=== PATIENT | female | born 1945 | race Caucasian/White ===

== ENCOUNTER 2016-06-26 09:18 | Emergency (ER) | payer MEDICARE ==
[2016-06-26 10:12] LABS: Hematocrit 37 % (35-47); Hemoglobin 12.2 g/dl (12.0-16.0); Mean Corpuscular HGB Conc 33 g/dl (31-36); Mean Corpuscular Hemoglobin 33 pg (27-31); Mean Corpuscular Volume 99 fL (80-97); Mean Platelet Volume 10 um3 (7.4-10.4); Red Blood Count 3.71 10^6/ul (4.0-5.4); Red Cell Distribution Width 14 % (10.5-15); White Blood Count 6.4 10^3/ul (3.5-10.8)
[2016-06-26 10:22] LABS: BUN/Creatinine Ratio 14.1 (8-20); Calcium 9.4 mg/dL (8.6-10.3); EGFR African American 93.9 (>60); Globulin 2.8 g/dL (2-4); Potassium 4.1 mmol/L (3.5-5.0); Total Bilirubin 0.8 mg/dL (0.2-1.0); Total Protein 6.8 g/dL (6.4-8.9)
[2016-06-26 10:24] LABS: Troponin I 0.01 ng/mL (<0.04)
--- NOTE | 2016-06-26 10:59 | RAD ---
Indication: Chest pain. Single frontal view of the chest performed at 1035 hours was reviewed. Comparison is made with previous exam dated January 08, 2015. Cardiomegaly. Bibasilar atelectasis with blunting of the costophrenic angle is noted. No definite pneumonia is identified. IMPRESSION: CARDIOMEGALY WITH BLUNTING OF THE COSTOPHRENIC ANGLES. NO PNEUMONIA IS IDENTIFIED.
[2016-06-26 13:16] VITALS: BP 142/83
--- NOTE | 2016-06-26 13:53 | ED ---
Nita Handy Matthew, scribed for Blane Vazquez MD on 06/26/16 at 1028 . HPI Chest Pain - HPI Summary HPI Summary: A 70 y/o female presents to the ED with sudden, constant chest pain since 07:15 this morning. The pain was described as pressure. Associated symptoms include SOB, nausea, and diarrhea. The patient denies vomiting, abdominal pain, and pedal edema. Currently the chest pressure has partially resolved. The patient attempt to use her inhaler for SOB, which did not alleviate her symptoms. She had to use her inhaler at 05:00 this morning, which was unusually for her. She also took a 6 year old nitro [employer], which mildly relieved the chest pressure. She also had aspirin and a breathing treatment in the ambulance, which also helped alleviate the symptoms. The patient normally takes a baby aspirin daily. The patient states that the symptoms were similar to when she had her previous LA. - History of Current Complaint Chief Complaint: EDChestPainROMI Time Seen by Provider: 06/26/16 09:53 Hx Obtained From: Patient Onset/Duration: Started Hours Ago, Atraumatic, Still Present Time of Onset: 07:15 Timing: Constant Initial Severity: Moderate Current Severity: Moderate Pain Intensity: 0 Pain Scale Used: 0-10 Numeric Chest Pain Radiates: No Character: Pressure/Squeezing Alleviating Factor(s): NTG 123, Other: - Aspirin Associated Signs and Symptoms: Positive: Chest Pain, Shortness of Breath, Nausea , Other: - Diarrhea. Negative: Abdominal Pain, Calf Pain/Swelling, Vomiting - Allergy/Home Medications Allergies/Adverse Reactions: Allergies Allergy/AdvReac Type Severity Reaction Status Date / Time No Known Allergies Allergy Verified 01/08/15 18:13 PMH/Surg Hx/FS Hx/Imm Hx Endocrine/Hematology History: Denies: Hx Diabetes Cardiovascular History: Reports: Hx Angina, Hx Congestive Heart Failure, Hx Coronary Artery Disease, Hx Myocardial Infarction Denies: Hx Hypercholesterolemia, Hx Valvular Heart Disease Respiratory History: Reports: Hx Chronic Obstructive Pulmonary Disease (COPD), Other Respiratory Problems/Disorders - copd Denies: Hx Asthma - Surgical History Surgery Procedure, Year, and Place: HYSTERECTOMY, 01/30/12 Hx Anesthesia Reactions: No Infectious Disease History: No Infectious Disease History: Denies: Hx Hepatitis, Traveled Outside the [place] in Last 30 Days - Family History Known Family History: Positive: Cardiac Disease - Social History Alcohol Use: Daily Alcohol Amount: 2 cocktails every night Substance Use Type: Reports: None Smoking Status (MU): Former Smoker Review of Systems Constitutional: Negative Eyes: Negative ENT: Negative Positive: Chest Pain Positive: Shortness Of Breath Positive: Diarrhea, Nausea Genitourinary: Negative Musculoskeletal: Negative Skin: Negative Neurological: Negative Psychological: Normal All Other Systems Reviewed And Are Negative: Yes Physical Exam Triage Information Reviewed: Yes Vital Signs On Initial Exam: Initial Vitals Temp Pulse Resp BP Pulse Ox 98.3 F 82 18 155/85 93 06/26/16 09:26 06/26/16 09:26 06/26/16 09:26 06/26/16 09:26 06/26/16 09:26 Vital Signs Reviewed: Yes Appearance: Positive: Well-Appearing, No Pain Distress Skin: Positive: Warm, Skin Color Reflects Adequate Perfusion, Dry Head/Face: Positive: Normal Head/Face Inspection Eyes: Positive: Normal ENT: Positive: Normal ENT inspection Neck: Positive: Supple, Nontender Respiratory/Lung Sounds: Positive: Clear to Auscultation, Breath Sounds Present Cardiovascular: Positive: RRR Abdomen Description: Positive: Nontender, Soft Bowel Sounds: Positive: Present Musculoskeletal: Positive: Normal, Strength/ROM Intact Neurological: Positive: Normal, Sensory/Motor Intact, Alert, Oriented to Person Place, Time Psychiatric: Positive: Normal, Affect/Mood Appropriate Diagnostics - Vital Signs Vital Signs Temp Pulse Resp BP Pulse Ox 06/26/16 09:26 98.3 F 82 18 155/85 93 - Laboratory Lab Results: Lab Results 06/26/16 06/26/16 06/26/16 Range/Units 09:24 09:24 09:24 WBC 6.4 (3.5-10.8) 10^3/ul RBC 3.71 L (4.0-5.4) 10^6/ul Hgb 12.2 (12.0-16.0) g/dl Hct 37 (35-47) % MCV 99 H (80-97) fL MCH 33 H (27-31) pg MCHC 33 (31-36) g/dl RDW 14 (10.5-15) % Plt Count 156 (150-450) 10^3/ul MPV 10 (7.4-10.4) um3 Neut % (Auto) 80.0 (38-83) % Lymph % (Auto) 10.9 L (25-47) % [place] % (Auto) 5.5 (1-9) % Eos % (Auto) 3.1 (0-6) % Baso % (Auto) 0.5 (0-2) % Absolute Neuts (auto) 5.1 (1.5-7.7) 10^3/ul Absolute Lymphs (auto) 0.7 L (1.0-4.8) 10^3/ul Absolute Monos (auto) 0.4 (0-0.8) 10^3/ul Absolute Eos (auto) 0.2 (0-0.6) 10^3/ul Absolute Basos (auto) 0 (0-0.2) 10^3/ul Absolute Nucleated RBC 0 10^3/ul Nucleated RBC % 0 Sodium 139 (133-145) mmol/L Potassium 4.1 (3.5-5.0) mmol/L Chloride 103 (101-111) mmol/L Carbon Dioxide 28 (22-32) mmol/L Anion Gap 8 (2-11) mmol/L BUN 11 (6-24) mg/dL Creatinine 0.78 (0.51-0.95) mg/dL Est GFR ( Amer) 93.9 (>60) Est GFR (Non-Af Amer) 73.0 (>60) BUN/Creatinine Ratio 14.1 (8-20) Glucose 128 H (70-100) mg/dL Lactic Acid 1.7 (0.5-2.0) mmol/L Calcium 9.4 (8.6-10.3) mg/dL Total Bilirubin 0.80 (0.2-1.0) mg/dL AST 25 (13-39) U/L ALT 26 (7-52) U/L Alkaline Phosphatase 66 (34-104) U/L Troponin I 0.01 (<0.04) ng/mL Total Protein 6.8 (6.4-8.9) g/dL Albumin 4.0 (3.2-5.2) g/dL Globulin 2.8 (2-4) g/dL Albumin/Globulin Ratio 1.4 (1-3) 06/26/16 Range/Units 12:00 WBC (3.5-10.8) 10^3/ul RBC (4.0-5.4) 10^6/ul Hgb (12.0-16.0) g/dl Hct (35-47) % MCV (80-97) fL MCH (27-31) pg MCHC (31-36) g/dl RDW (10.5-15) % Plt Count (150-450) 10^3/ul MPV (7.4-10.4) um3 Neut % (Auto) (38-83) % Lymph % (Auto) (25-47) % [place] % (Auto) (1-9) % Eos % (Auto) (0-6) % Baso % (Auto) (0-2) % Absolute Neuts (auto) (1.5-7.7) 10^3/ul Absolute Lymphs (auto) (1.0-4.8) 10^3/ul Absolute Monos (auto) (0-0.8) 10^3/ul Absolute Eos (auto) (0-0.6) 10^3/ul Absolute Basos (auto) (0-0.2) 10^3/ul Absolute Nucleated RBC 10^3/ul Nucleated RBC % Sodium (133-145) mmol/L Potassium (3.5-5.0) mmol/L Chloride (101-111) mmol/L Carbon Dioxide (22-32) mmol/L Anion Gap (2-11) mmol/L BUN (6-24) mg/dL Creatinine (0.51-0.95) mg/dL Est GFR ( Amer) (>60) Est GFR (Non-Af Amer) (>60) BUN/Creatinine Ratio (8-20) Glucose (70-100) mg/dL Lactic Acid (0.5-2.0) mmol/L Calcium (8.6-10.3) mg/dL Total Bilirubin (0.2-1.0) mg/dL AST (13-39) U/L ALT (7-52) U/L Alkaline Phosphatase (34-104) U/L Troponin I 0.01 (<0.04) ng/mL Total Protein (6.4-8.9) g/dL Albumin (3.2-5.2) g/dL Globulin (2-4) g/dL Albumin/Globulin Ratio (1-3) Result Diagrams: 06/26/16 09:24 02/07/17 09:24 Lab Statement: Any lab studies that have been ordered have been reviewed, and results considered in the medical decision making process. - Radiology CXR Xray Interpretation: Positive (See Comments) - IMPRESSION: CARDIOMEGALY WITH BLUNTING OF THE COSTOPHRENIC ANGLES. NO PNEUMONIA IS IDENTIFIED. Radiology Interpretation Completed By: Radiologist - EKG 09:11 Cardiac Rate: NL - 85 bpm EKG Rhythm: Sinus Rhythm ST Segment: Non-Specific - inferior Chest Pain Course/Dx - Course Course Of Treatment: Vanessa Hanks presented with an almost resolved episode of SOB and chest tightness/pressure. It improved a lot when she borrowed a nebulizer. She got further resolution with a NTG in the EMS. It resolved completely with no further treatment and she was W/U'd here with labs - including two troponins - ecg and CXR. Her EDACS score was a 12. - Diagnoses Provider Diagnoses: Chest pain, COPD (chronic obstructive pulmonary disease) Discharge - Discharge Plan Condition: Stable Disposition: HOME Prescriptions: Albuterol 2.5MG/3ML (0.083%)* [Ventolin 2.5 MG/3 ML NEB.ANGÉLICA*] 2.5 mg INH Q4H # 30 neb.[email or web address] Patient Education Materials: Chest Pain (ED), Dyspnea (ED) Referrals: Marquis Suggs MD [Primary Care Provider] - 2 Days Additional Instructions: Please follow-up with your primary care physician in 2 days. The documentation as recorded by the Nita alonso Matthew accurately reflects the service I personally performed and the decisions made by me, Blane Vazquez MD.
== END 2016-06-26 13:14 | disposition home or self-care (01) ==
LOC: ED 09:18
DX: R07.9 Chest pain, unspecified (principal); J44.9 Chronic obstructive pulmonary disease, unspecified; I20.9 Angina pectoris, unspecified; I50.9 Heart failure, unspecified; I25.10 Atherosclerotic heart disease of native coronary artery without angina pectoris; I51.7 Cardiomegaly; I25.2 Old myocardial infarction; Z79.82 Long term (current) use of aspirin
CPT/HCPCS: 36415; 71010; 80053; 83605; 84484; 85025; 93005; 99284

== ENCOUNTER 2017-02-17 01:11 | Observation (INO) | payer MEDICARE ==
[2017-02-17] MEDS ORDERED: Aspirin Low Dose CHEW TAB* 81 MG PO ONE (01:21)
[2017-02-17] MEDS ORDERED: Ondansetron INJ* 2 MG/ML VIAL IV ONE (01:21)
[2017-02-17] MEDS ORDERED: NS 0.9% 1000 ML* 1,000 ML IV ONE (01:21)
[2017-02-17 02:18] LABS: Hematocrit 38 % (35-47); Hemoglobin 12.5 g/dl (12.0-16.0); Mean Corpuscular HGB Conc 33 g/dl (31-36); Mean Corpuscular Hemoglobin 32 pg (27-31); Mean Corpuscular Volume 99 fL (80-97); Mean Platelet Volume 10 um3 (7.4-10.4); Red Blood Count 3.86 10^6/ul (4.0-5.4); Red Cell Distribution Width 13 % (10.5-15); White Blood Count 16.1 10^3/ul (3.5-10.8)
[2017-02-17 02:19] LABS: Add Diff/Slide Review? Slide Review Added; Comments Flag Yes
[2017-02-17] MEDS ORDERED: Diltiazem IV* 5 MG/ML 5 ML VIAL (for loading dose/IV Push) (25 MG) IV SLOW PU ONE (02:28)
[2017-02-17 02:31] LABS: Albumin 3.4 g/dL (3.2-5.2); BUN/Creatinine Ratio 11.6 (8-20); Calcium 8.6 mg/dL (8.6-10.3); EGFR African American 33.5 (>60); EGFR Non-African American 26.1 (>60); Globulin 3.2 g/dL (2-4); Magnesium 1.2 mg/dL (1.9-2.7); Potassium 3.4 mmol/L (3.5-5.0); Total Bilirubin 0.8 mg/dL (0.2-1.0); Total Protein 6.6 g/dL (6.4-8.9)
[2017-02-17 02:38] LABS: Troponin I 0.05 ng/mL (<0.04)
[2017-02-17 02:46] LABS: TSH (Thyroid Stimulating Horm) 8.51 mcIU/mL (0.34-5.60)
[2017-02-17] MEDS ORDERED: Acetaminophen TAB* 325 MG PO PRN (04:08)
[2017-02-17] MEDS ORDERED: Albuterol 2.5 MG/3 ML NEB.SOL* (0.083%) INH PRN (04:08)
[2017-02-17] MEDS ORDERED: Ondansetron INJ* 2 MG/ML VIAL IV PRN (04:08)
[2017-02-17] MEDS: Omeprazole CAP* 20 MG PO SCH (05:45)
[2017-02-17] MEDS: Heparin VIAL(*) 5000 UNITS/ML VIAL (FIVE THOUSAND) SUBCUT SCH ×3 (05:45→21:05)
[2017-02-17] MEDS: NS 0.9% 1000 ML* 1,000 ML IV SCH ×2 (05:48→12:10)
[2017-02-17] MEDS ORDERED: Potassium Chlor TAB* 20 MEQ TAB.ER PO ONE (07:12)
[2017-02-17 07:24] LABS: Hematocrit 35 % (35-47); Hemoglobin 11.6 g/dl (12.0-16.0); Mean Corpuscular HGB Conc 34 g/dl (31-36); Mean Corpuscular Hemoglobin 33 pg (27-31); Mean Corpuscular Volume 98 fL (80-97); Mean Platelet Volume 9 um3 (7.4-10.4); Red Blood Count 3.54 10^6/ul (4.0-5.4); Red Cell Distribution Width 14 % (10.5-15); White Blood Count 20.7 10^3/ul (3.5-10.8)
[2017-02-17] MEDS ORDERED: NS 0.9% 500 ML BAG* 500 ML IV ONE (07:41)
[2017-02-17 07:42] LABS: BUN/Creatinine Ratio 16.9 (8-20); Calcium 7.8 mg/dL (8.6-10.3); EGFR African American 46.9 (>60); EGFR Non-African American 36.5 (>60); Potassium 3.9 mmol/L (3.5-5.0)
[2017-02-17] MEDS ORDERED: Potassium Chloride LIQUID* 20 MEQ PACKET PO ONE (07:42)
[2017-02-17] MEDS ORDERED: Magnesium Sulfate 2 GM IV* 2 GM/50 ML BAG IVPB ONE (07:42)
--- NOTE | 2017-02-17 07:47 | HP ---
H&P (Free Text) History and Physical: PCP: Giovanny Suggs MD Cardiology: Dr Reid Date/Time: 02/17/2017 3057 CC: malaise HPI: Mrs Hanks is a 71YO female HX CAD, COPD, pAFIB who presents via EMS with complaint of malaise starting this AM associated with subjective F/C, sweats, loose/watery diarrhea w/o black or bloody content, fatigue, generalized weakness, and nausea with dry heaves x3-4. She denies chest pain, SOB, B/U/F of urine, abdominal pain beyond cramping associated with emesis, palpitations, LE swelling, cough, congestion, or other issues. Work up revealed AFIB RVR rate 140s treated with IVFs and 10mg diltiazem IV push in ED resulting in conversion to NSR with persistent hypotension likely 2nd BP effect of diltiazem. Upon my evaluation she was feeling notably better with a systolic in the 80s, but mentating normally. Additionally her troponin is indeterminate at 0.05 and her lactate was 3.9 likely 2nd demand ischemia from her tachycardia and poor cardiac output, respectively. K was low at 3.4. WBCs are 16, likely 2nd demarginalization. BNP was elevated, but consistent with the only previous value available. PMedHx CAD/ME/stent x2 COPD HTN HLD Ambulatory Orders Alendronate (NF) [Fosamax (NF)] 35 mg PO WEEKLY 05/16/12 Aspirin Low Dose CHEW TAB* [Aspirin Low Dose TAB*] 81 mg PO DAILY 05/16/12 Calcium Carbonate-Vitamin D [Calcium] 2 tab PO DAILY 05/16/12 Dicyclomine CAP* [Bentyl CAP*] 40 mg PO DAILY 05/16/12 Lisinopril TAB* [Prinivil TAB*] 20 mg PO DAILY 05/16/12 Metoprolol Tartrate TAB* [Lopressor TAB*] 50 mg PO DAILY 05/16/12 Multivitamins/Minerals TAB* [Thera M Plus*] 1 tab PO DAILY 05/16/12 Nitroglycerin TAB 0.4 MG* [Nitrostat*] 0.4 mg SL PRN 05/16/12 Sertraline* [Zoloft*] 25 mg PO DAILY 05/16/12 Simvastatin TAB(NF) [Zocor(NF)] 40 mg PO DAILY 05/16/12 Albuterol 2.5MG/3ML (0.083%)* [Ventolin 2.5 MG/3 ML NEB.ANGÉLICA*] 2.5 mg INH Q4H # 30 neb.angélica 06/26/16 Allergies No Known Allergies Allergy (Verified 02/17/17 05:20) PSurgHx hysterectomy complicated by wound infection, abdominal abscess, & sepsis 2011 ventral hernia repair appendectomy tubal ligation SocHx: quit smoking 2000, 2 cocktails nightly, no recreational drugs; , lives alone; full code status FamHx: positive for CAD, breast CA ROS: as above, otherwise reviewed and all were negative vitals: Vital Signs Temp 36.4 C 02/17/17 05:31 Pulse 88 02/17/17 05:31 Resp 18 02/17/17 05:31 BP 95/54 02/17/17 05:31 Pulse Ox 96 02/17/17 05:31 Intake & Output 02/16/17 02/16/17 02/17/17 11:59 23:59 11:59 Intake Total 1000 Balance 1000 Weight 78.29 kg Intake: IV Fluids 1000 Constitutional: NAD, normally developed, overweight elderly white female HEENM: atraumatic; sclera/conjunctiva: anicteric/clear; hearing: clinically intact; oropharynx: clear, mucosa moist Neck: soft tissue: non-tender; thyroid: normal Pulmonary: scant bibasilar crackles, good aeration, no accessory muscle use CV: RR/RR, normal S1S2, no carotid bruit, no jugular venous distention, 2+ B DP/ PT, no edema Abdominal: soft, non-distended, non-tender, no rebound/guarding/rigidity, normoactive bowel sounds, no hepatosplenomegaly or masses, no costovertebral angle tenderness Musculoskeletal: general: grossly intact, no palpable tenderness Integumental: normal appearance and texture of exposed skin Psychiatric orientation: AA&O to PPS affect: calm mood: cooperative eye contact: good content: reliable responses: timely insight: good Testing: Lab Results 02/17/17 02/17/17 02/17/17 Range/Units 01:55 01:55 01:55 WBC 16.1 H (3.5-10.8) 10^3/ul RBC 3.86 L (4.0-5.4) 10^6/ul Hgb 12.5 (12.0-16.0) g/dl Hct 38 (35-47) % MCV 99 H (80-97) fL MCH 32 H (27-31) pg MCHC 33 (31-36) g/dl RDW 13 (10.5-15) % Plt Count 185 (150-450) 10^3/ul MPV 10 (7.4-10.4) um3 Neut % (Auto) 94.9 H (38-83) % Lymph % (Auto) 2.7 L (25-47) % [place] % (Auto) 2.1 (1-9) % Eos % (Auto) 0.2 (0-6) % Baso % (Auto) 0.1 (0-2) % Absolute Neuts (auto) 15.3 H (1.5-7.7) 10^3/ul Absolute Lymphs (auto) 0.4 L (1.0-4.8) 10^3/ul Absolute Monos (auto) 0.3 (0-0.8) 10^3/ul Absolute Eos (auto) 0 (0-0.6) 10^3/ul Absolute Basos (auto) 0 (0-0.2) 10^3/ul Absolute Nucleated RBC 0 10^3/ul Nucleated RBC % 0 INR (Anticoag Therapy) 1.17 H (0.89-1.11) APTT 29.5 (26.0-36.3) seconds Sodium (133-145) mmol/L Potassium (3.5-5.0) mmol/L Chloride (101-111) mmol/L Carbon Dioxide (22-32) mmol/L Anion Gap (2-11) mmol/L BUN (6-24) mg/dL Creatinine (0.51-0.95) mg/dL Est GFR ( Amer) (>60) Est GFR (Non-Af Amer) (>60) BUN/Creatinine Ratio (8-20) Glucose (70-100) mg/dL Lactic Acid (0.5-2.0) mmol/L Calcium (8.6-10.3) mg/dL Magnesium (1.9-2.7) mg/dL Total Bilirubin (0.2-1.0) mg/dL AST (13-39) U/L ALT (7-52) U/L Alkaline Phosphatase (34-104) U/L Total Creatine Kinase (10-223) U/L CK-MB (CK-2) (0.6-6.3) ng/mL Troponin I (<0.04) ng/mL B-Natriuretic Peptide 535 H ( - 100) pg/mL Total Protein (6.4-8.9) g/dL Albumin (3.2-5.2) g/dL Globulin (2-4) g/dL Albumin/Globulin Ratio (1-3) Amylase (29-103) U/L Lipase (11.0-82.0) U/L TSH (0.34-5.60) mcIU/mL 02/17/17 02/17/17 02/17/17 Range/Units 01:55 01:55 07:02 WBC 20.7 H (3.5-10.8) 10^3/ul RBC 3.54 L (4.0-5.4) 10^6/ul Hgb 11.6 L (12.0-16.0) g/dl Hct 35 (35-47) % MCV 98 H (80-97) fL MCH 33 H (27-31) pg MCHC 34 (31-36) g/dl RDW 14 (10.5-15) % Plt Count 170 (150-450) 10^3/ul MPV 9 (7.4-10.4) um3 Neut % (Auto) 93.5 H (38-83) % Lymph % (Auto) 1.8 L (25-47) % [place] % (Auto) 3.7 (1-9) % Eos % (Auto) 0.1 (0-6) % Baso % (Auto) 0.9 (0-2) % Absolute Neuts (auto) 19.4 H (1.5-7.7) 10^3/ul Absolute Lymphs (auto) 0.4 L (1.0-4.8) 10^3/ul Absolute Monos (auto) 0.8 (0-0.8) 10^3/ul Absolute Eos (auto) 0 (0-0.6) 10^3/ul Absolute Basos (auto) 0.2 (0-0.2) 10^3/ul Absolute Nucleated RBC 0 10^3/ul Nucleated RBC % 0 INR (Anticoag Therapy) (0.89-1.11) APTT (26.0-36.3) seconds Sodium 134 (133-145) mmol/L Potassium 3.4 L (3.5-5.0) mmol/L Chloride 97 L (101-111) mmol/L Carbon Dioxide 22 (22-32) mmol/L Anion Gap 15 H (2-11) mmol/L BUN 22 (6-24) mg/dL Creatinine 1.90 H (0.51-0.95) mg/dL Est GFR ( Amer) 33.5 (>60) Est GFR (Non-Af Amer) 26.1 (>60) BUN/Creatinine Ratio 11.6 (8-20) Glucose 129 H (70-100) mg/dL Lactic Acid 3.9 H* (0.5-2.0) mmol/L Calcium 8.6 (8.6-10.3) mg/dL Magnesium 1.2 L (1.9-2.7) mg/dL Total Bilirubin 0.80 (0.2-1.0) mg/dL AST 24 (13-39) U/L ALT 21 (7-52) U/L Alkaline Phosphatase 85 (34-104) U/L Total Creatine Kinase 42 (10-223) U/L CK-MB (CK-2) 1.8 (0.6-6.3) ng/mL Troponin I 0.05 H* (<0.04) ng/mL B-Natriuretic Peptide ( - 100) pg/mL Total Protein 6.6 (6.4-8.9) g/dL Albumin 3.4 (3.2-5.2) g/dL Globulin 3.2 (2-4) g/dL Albumin/Globulin Ratio 1.1 (1-3) Amylase 56 (29-103) U/L Lipase 49 (11.0-82.0) U/L TSH 8.51 H (0.34-5.60) mcIU/mL ECG, personally reviewed: initially AFIB rate [address]-T changes; follow up is NSR rate 82, no ischemia CXR, personally reviewed: no acute process Impression: 71F presenting with multiple symptoms found to be in AFIB/RVR with indeterminate troponin, elevated BNP, elevated lactic acid DIAGNOSIS & PLAN Primary AFIB/RVR : converted to NSR : persistent hypotension likely 2nd BP effect of diltiazem : elevated troponin, lactic acid; trend : telemetry : supplemental oxygen : supportive care : [id number] score is 4, but 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 OLAMIDE : suspect 2nd poor cardiac output : will hold further IVF at this time as she has bibasilar crackles and was at a golf tournament last week admitting to some sodium indiscretion : trend elevated BNP : likely 2nd poor cardiac output 2nd AFIB/RVR : monitor respiratory status elevated TSH : f/u with PCP outpatient for further evaluation hypoKalemia : replace Secondary CAD/ME/stent x2 : review meds once reconciled COPD : review meds once reconciled HTN : review meds once reconciled HLD : review meds once reconciled Admission Rational: observation for AFIB/RVR DVTp: heparin SQ Code Status: full HCP: daughter, Yashira Pierre
[2017-02-17 07:53] LABS: Troponin I 0.08 ng/mL (<0.04)
[2017-02-17] MEDS: Atorvastatin* 20 MG TAB PO SCH (08:01)
[2017-02-17] MEDS: Aspirin Low Dose CHEW TAB* 81 MG PO SCH (08:01)
[2017-02-17] MEDS: Sertraline* 25 MG TAB PO SCH (08:01)
--- NOTE | 2017-02-17 08:01 | RAD ---
HISTORY: Rapid A. fib COMPARISONS: June 26, 2016 VIEWS: 1: frontal portable view of the chest at 2:14 AM FINDINGS: LINES AND TUBES: None. CARDIOMEDIASTINAL SILHOUETTE: The cardiac silhouette is enlarged. The cardiomediastinal silhouette is otherwise normal for portable technique. PLEURA: The costophrenic angles are sharp. No pleural abnormalities are noted. LUNG PARENCHYMA: The lungs are clear. ABDOMEN: The upper abdomen is clear. There is no subphrenic gas. BONES AND SOFT TISSUES: No bone or soft tissue abnormalities are noted. IMPRESSION: CARDIOMEGALY
[2017-02-17] MEDS: IPRATROPIUM RESP MDI INH SCH ×4 (08:11→23:58)
[2017-02-17] MEDS: ALBUTEROL INH SCH ×4 (08:11→23:58)
[2017-02-17] MEDS: Docusate CAP* 100 MG PO SCH ×2 (08:11→20:52)
[2017-02-17 08:22] LABS: Urine Bacteria 3+ (Absent); Urine Bilirubin Negative (Negative); Urine Glucose Negative (Negative); Urine Nitrite Negative (Negative)
[2017-02-17] MEDS ORDERED: Magnesium Sulfate 1 GM IV* 1 GM/100 ML BAG IV ONE (10:15)
--- NOTE | 2017-02-17 10:36 | PN ---
Subjective Date of Service: 02/17/17 Interval History: Patient seen this morning. Reports feeling improved. No further chills, more energy. Still with some slight dizziness when sitting up. Continues to have watery BMs. SOB resolved, states she has had to be discharged from the hospital on O2 in the past. 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 Had nothing to eat yesterday, does not feel she was taking in significant fluids either. Family History: Unchanged from Admission Social History: Unchanged from Admission Past Medical History: Unchanged from Admission Objective Active Medications: Acetaminophen (Tylenol Tab*) 650 mg PO Q6H PRN Albuterol (Ventolin 2.5 Mg/3 Ml Neb.Gayle*) 2.5 mg INH Q2H PRN Albuterol/Ipratropium (Combivent Respimat(Nf)) 1 puff INH QID [facility] Aspirin (Aspirin Low Dose Tab*) 81 mg PO DAILY [facility] Atorvastatin Calcium (Lipitor*) 20 mg PO DAILY [facility] Docusate Sodium (Colace Cap*) 200 mg PO BID [facility] Heparin Sodium (Porcine) (Heparin Vial(*)) 5,000 units SUBCUT Q8HR [facility] Sodium Chloride (Ns 0.9% 1000 Ml*) 1,000 mls @ 50 mls/hr IV PER RATE [facility] Magnesium Sulfate/Dextrose (Magnesium Sulfate 1 Gm Iv*) 1 gm in 100 mls @ 200 mls/hr IV ONCE ONE Omeprazole (Prilosec Cap*) 20 mg PO DAILY@0600 [facility] Ondansetron HCl (Zofran Inj*) 4 mg IV Q6H PRN Sertraline HCl (Zoloft*) 25 mg PO DAILY [facility] Vital Signs 02/17/17 02/17/17 02/17/17 04:15 05:31 07:06 Temperature 97.6 F Pulse Rate 84 88 Respiratory 18 18 20 Rate Blood Pressure 84/54 95/54 (mmHg) O2 Sat by Pulse 96 96 Oximetry 02/17/17 02/17/17 02/17/17 07:23 07:27 08:50 Temperature 98.0 F Pulse Rate 85 89 Respiratory 20 Rate Blood Pressure 85/37 100/49 (mmHg) O2 Sat by Pulse 91 96 Oximetry 02/17/17 09:15 Temperature Pulse Rate Respiratory Rate Blood Pressure 88/46 (mmHg) O2 Sat by Pulse Oximetry Oxygen Devices in Use Now: Nasal Cannula - 2L Appearance: Elderly, F, laying in bed in NAD Eyes: No Scleral Icterus Ears/Nose/Mouth/Throat: Mucous Membranes Moist Neck: NL Appearance and Movements; NL JVP Respiratory: Symmetrical Chest Expansion and Respiratory Effort, - - Trace rales in B/L bases Cardiovascular: NL Sounds; No Murmurs; No JVD, RRR Abdominal: NL Sounds; No Tenderness; No Distention Lymphatic: No Cervical Adenopathy Extremities: No Edema Skin: No Rash or Ulcers Neurological: Alert and Oriented x 3 Result Diagrams: 02/17/17 07:02 02/17/17 07:02 Assess/Plan/Problems-Billing Assessment: Diarrhea, nausea, AFib with RVR, OLAMIDE, possible UTI in a 71 yo F with hx of pAF not on AC, COPD, HTN, HLD, CAD, CHF - Patient Problems (1) Afib Current Visit: Yes Comment: Received IV Diltiazem in the ED and converted to NSR. Holding home Metoprolol. Not on AC as outpatient, can f/u with Cardiolgist. Replete K and Mg. (2) Troponin I above reference range Current Visit: Yes Comment: Likely due to demand from AFib/hypovolemia. No EKG changes or chest pain. Recheck in AM. (3) OLAMIDE (acute kidney injury) Current Visit: Yes Comment: Likely due to hypoperfusion/dehydration. Improving with IVF, gave additional 500 cc bolus this morning. Encourage PO intake. BMP daily. (4) Hypotension Current Visit: Yes Comment: Likely due to dehydration and diltiazem effects. BPs low still but stable, hold on more boluses. Lactic acidosis resolved. Hold home BP medications. (5) UTI (urinary tract infection) Current Visit: Yes Comment: Patient reporting some crampy pain in the lower abdomen, but with leukocytosis and positive UA will opt to treat with CTX. Follow culture data. (6) Diarrhea Current Visit: Yes Comment: Reports 5-6 episodes since last night. Will check C diff and fecal lactoferrin. May just be viral gastroenteritis (7) CAD (coronary artery disease) Current Visit: Yes Comment: Continue ASA. Holding metoprolol as above. (8) COPD (chronic obstructive pulmonary disease) Current Visit: Yes Comment: Continue home combivent. Wean O2 as able. (9) HLD (hyperlipidemia) Current Visit: Yes Comment: Continue statin (10) DVT prophylaxis Current Visit: Yes Comment: HSQ
--- NOTE | 2017-02-17 10:37 | ED ---
Velvet Handy Thomas, scribed for Candy Price MD on 02/17/17 at 0208 . HPI Cardiac - HPI Summary HPI Summary: The pt is a 71 y/o F BIBA with rapid A-Fib and hypotensive blood pressure. She had generalized illness earlier today with abdominal cramping, dry heaves, and diarrhea onset two hours ago. Pt denies CP and SOB. No melena, hematochezia, no hematemesisThe patient is on furosemide 20mg, levothyroxine 25mg, simvastatin 40mg, NTG PRN, Qvar, Flovent, ASA 81mg, Metoprolol ER 50mg, and Sertraline 50mg. PMHx of an [place], CHF, and A-Fib. PSHx of coronary stents, hysterectomy, and hernia repair. FHx of CAD. She is accompanied by two family members. - History of Current Complaint Chief Complaint: EDGeneral Stated Complaint: GENERAL ILLNESS Time Seen by Provider: 02/17/17 01:21 Hx Obtained From: Patient, Family/[place] - 2 female family members with pt, EMS Onset/Duration: Started Minutes Ago - rapid A-Fib was first noticed en route to [facility], Still Present Timing: Constant Initial Severity: Severe Current Severity: Severe - rapid afib without chest pain Pain Intensity: 0 Pain Scale Used: 0-10 Numeric Aggravating Factor(s): Nothing Alleviating Factor(s): Nothing Associated Signs and Symptoms: Positive: Weakness, Abdominal Pain, Other: - Abdominal cramping, dry heaves, diarrhea - Allergy/Home Medications Allergies/Adverse Reactions: Allergies Allergy/AdvReac Type Severity Reaction Status Date / Time No Known Allergies Allergy Verified 02/17/17 05:20 Home Medications: Home Medications Albuterol 2.5MG/3ML (0.083%)* [Ventolin 2.5 MG/3 ML NEB.ANGÉLICA*] 2.5 mg INH Q4H PRN 02/17/17 [History Confirmed 02/17/17] Combivent Respimat (NF) 1 puff INH QID 02/17/17 [History Confirmed 02/17/17] Naproxen Sodium 220 mg 1 tab PO Q6HR PRN 02/17/17 [History Confirmed 02/17/17] PMH/Surg Hx/FS Hx/Imm Hx Previously Healthy: No Endocrine/Hematology History: Denies: Hx Diabetes Cardiovascular History: Reports: Hx Angina, Hx Congestive Heart Failure, Hx Coronary Artery Disease, Hx Myocardial Infarction Denies: Hx Hypercholesterolemia, Hx Valvular Heart Disease Respiratory History: Reports: Hx Chronic Obstructive Pulmonary Disease (COPD) Denies: Hx Asthma - Surgical History Surgery Procedure, Year, and Place: HYSTERECTOMY, 01/30/12. coronary stents, hernia repair Hx Anesthesia Reactions: No Infectious Disease History: No Infectious Disease History: Denies: Hx Hepatitis, Traveled Outside the [place] in Last 30 Days - Family History Known Family History: Positive: Cardiac Disease - Social History Alcohol Use: Daily Alcohol Amount: 2 cocktails every night Substance Use Type: Reports: None Smoking Status (MU): Former Smoker Review of Systems Constitutional: Negative Positive: Other - Rapid A-Fib; Hypotensive. Negative: Chest Pain Negative: Shortness Of Breath Positive: Diarrhea, Other - Abdominal pain, dry heaves Positive: no symptoms reported Musculoskeletal: Negative Skin: Negative Positive: Weakness - generalized Psychological: Normal All Other Systems Reviewed And Are Negative: Yes Physical Exam Triage Information Reviewed: Yes Vital Signs On Initial Exam: Initial Vitals Temp Pulse Resp BP Pulse Ox 96.4 F 145 18 95/62 96 02/17/17 01:16 02/17/17 01:16 02/17/17 01:16 02/17/17 01:16 02/17/17 01:16 Vital Signs Reviewed: Yes Appearance: Positive: No Pain Distress, Well-Nourished, Ill-Appearing Skin: Positive: Warm, Skin Color Reflects Adequate Perfusion Head/Face: Positive: Normal Head/Face Inspection Eyes: Positive: Conjunctiva Clear ENT: Positive: Normal ENT inspection Neck: Positive: Supple Respiratory/Lung Sounds: Positive: Clear to Auscultation, Breath Sounds Present , Other - No respiratory distress Cardiovascular: Positive: Pulses are Symmetrical in both Upper and Lower Extremities, Tachycardia, Leg Edema Right, Other - Brisk cap refill. Negative: Murmur Abdomen Description: Positive: Nontender, No Organomegaly, Soft Bowel Sounds: Positive: Present Musculoskeletal: Positive: Strength/ROM Intact Neurological: Positive: Sensory/Motor Intact, Alert, Oriented to Person Place, Time, Facial Symmetry, Speech Normal Psychiatric: Positive: Normal - [place] Coma Scale Coma Scale Total: 15 Diagnostics - Vital Signs Vital Signs Temp Pulse Resp BP Pulse Ox 02/17/17 01:16 96.4 F 145 18 95/62 96 - Laboratory Lab Results: Lab Results 02/17/17 02/17/17 02/17/17 Range/Units 01:55 01:55 01:55 WBC 16.1 H (3.5-10.8) 10^3/ul RBC 3.86 L (4.0-5.4) 10^6/ul Hgb 12.5 (12.0-16.0) g/dl Hct 38 (35-47) % MCV 99 H (80-97) fL MCH 32 H (27-31) pg MCHC 33 (31-36) g/dl RDW 13 (10.5-15) % Plt Count 185 (150-450) 10^3/ul MPV 10 (7.4-10.4) um3 Neut % (Auto) 94.9 H (38-83) % Lymph % (Auto) 2.7 L (25-47) % [place] % (Auto) 2.1 (1-9) % Eos % (Auto) 0.2 (0-6) % Baso % (Auto) 0.1 (0-2) % Absolute Neuts (auto) 15.3 H (1.5-7.7) 10^3/ul Absolute Lymphs (auto) 0.4 L (1.0-4.8) 10^3/ul Absolute Monos (auto) 0.3 (0-0.8) 10^3/ul Absolute Eos (auto) 0 (0-0.6) 10^3/ul Absolute Basos (auto) 0 (0-0.2) 10^3/ul Absolute Nucleated RBC 0 10^3/ul Nucleated RBC % 0 INR (Anticoag Therapy) 1.17 H (0.89-1.11) APTT 29.5 (26.0-36.3) seconds Sodium (133-145) mmol/L Potassium (3.5-5.0) mmol/L Chloride (101-111) mmol/L Carbon Dioxide (22-32) mmol/L Anion Gap (2-11) mmol/L BUN (6-24) mg/dL Creatinine (0.51-0.95) mg/dL Est GFR ( Amer) (>60) Est GFR (Non-Af Amer) (>60) BUN/Creatinine Ratio (8-20) Glucose (70-100) mg/dL Lactic Acid (0.5-2.0) mmol/L Calcium (8.6-10.3) mg/dL Magnesium (1.9-2.7) mg/dL Total Bilirubin (0.2-1.0) mg/dL AST (13-39) U/L ALT (7-52) U/L Alkaline Phosphatase (34-104) U/L Total Creatine Kinase (10-223) U/L CK-MB (CK-2) (0.6-6.3) ng/mL Troponin I (<0.04) ng/mL B-Natriuretic Peptide 535 H ( - 100) pg/mL Total Protein (6.4-8.9) g/dL Albumin (3.2-5.2) g/dL Globulin (2-4) g/dL Albumin/Globulin Ratio (1-3) Amylase (29-103) U/L Lipase (11.0-82.0) U/L TSH (0.34-5.60) mcIU/mL 02/17/17 02/17/17 Range/Units 01:55 01:55 WBC (3.5-10.8) 10^3/ul RBC (4.0-5.4) 10^6/ul Hgb (12.0-16.0) g/dl Hct (35-47) % MCV (80-97) fL MCH (27-31) pg MCHC (31-36) g/dl RDW (10.5-15) % Plt Count (150-450) 10^3/ul MPV (7.4-10.4) um3 Neut % (Auto) (38-83) % Lymph % (Auto) (25-47) % [place] % (Auto) (1-9) % Eos % (Auto) (0-6) % Baso % (Auto) (0-2) % Absolute Neuts (auto) (1.5-7.7) 10^3/ul Absolute Lymphs (auto) (1.0-4.8) 10^3/ul Absolute Monos (auto) (0-0.8) 10^3/ul Absolute Eos (auto) (0-0.6) 10^3/ul Absolute Basos (auto) (0-0.2) 10^3/ul Absolute Nucleated RBC 10^3/ul Nucleated RBC % INR (Anticoag Therapy) (0.89-1.11) APTT (26.0-36.3) seconds Sodium 134 (133-145) mmol/L Potassium 3.4 L (3.5-5.0) mmol/L Chloride 97 L (101-111) mmol/L Carbon Dioxide 22 (22-32) mmol/L Anion Gap 15 H (2-11) mmol/L BUN 22 (6-24) mg/dL Creatinine 1.90 H (0.51-0.95) mg/dL Est GFR ( Amer) 33.5 (>60) Est GFR (Non-Af Amer) 26.1 (>60) BUN/Creatinine Ratio 11.6 (8-20) Glucose 129 H (70-100) mg/dL Lactic Acid 3.9 H* (0.5-2.0) mmol/L Calcium 8.6 (8.6-10.3) mg/dL Magnesium 1.2 L (1.9-2.7) mg/dL Total Bilirubin 0.80 (0.2-1.0) mg/dL AST 24 (13-39) U/L ALT 21 (7-52) U/L Alkaline Phosphatase 85 (34-104) U/L Total Creatine Kinase 42 (10-223) U/L CK-MB (CK-2) 1.8 (0.6-6.3) ng/mL Troponin I 0.05 H* (<0.04) ng/mL B-Natriuretic Peptide ( - 100) pg/mL Total Protein 6.6 (6.4-8.9) g/dL Albumin 3.4 (3.2-5.2) g/dL Globulin 3.2 (2-4) g/dL Albumin/Globulin Ratio 1.1 (1-3) Amylase 56 (29-103) U/L Lipase 49 (11.0-82.0) U/L TSH 8.51 H (0.34-5.60) mcIU/mL Result Diagrams: 02/18/17 05:37 02/18/17 05:37 Lab Statement: Any lab studies that have been ordered have been reviewed, and results considered in the medical decision making process. - Radiology CXR Xray Interpretation: No Acute Changes - No acute disease. Radiology Interpretation Completed By: ED Physician - EKG 01:15 Cardiac Rate: Tachycardia - 139 BPM EKG Rhythm: Atrial Fibrillation EKG Interpretation: Nml IV/Kermit. Prolonged QTc (507). EKG Comparison: Other - Compared to 06/26/16, the patient is now in rapid A-Fib Re-Evaluation - Re-Evaluation First Eval Re-Evaluation Time: 01:27 Change: Unchanged Comment: At re-evaluation at 01:27, the patient says she wants to be DNR. This is witnessed by two family members. She has capacity. Second Eval Re-Evaluation Time: 02:24 Change: Unchanged Comment: I re-evaluated the patient. Pt with afib and rapid RVR, hypotension despite fluid bolus. Pt is mentating, not vomiting. Will give diltiazem IV push. Third Eval Re-Evaluation Time: 03:03 Change: Unchanged Comment: Heart rate is 117 systolic and presure is 76 systolic after 10mg of diltiazem. I am contacting Dr. Alfredo. Disposition - Course Course Of Treatment: Patients medications reviewed this visit. Assessment/Plan: The pt is a 71 y/o F BIBA with rapid A-Fib and hypotensive blood pressure. She had generalized illness earlier today with abdominal cramping, dry heaves, and diarrhea onset two hours ago. Pt denies CP and SOB. At re-evaluation at 01:27, the patient says she wants to be DNR. This is witnessed by two family members. She has capacity. Patients medication reviewed this visit. Blood pressure noted. In the ED course the patient was given ASA, Diltiazem, IV fluids, and Zofran. Bloodwork was obtained with results earlier in this report. Troponin 0.05 on 1:55 and 0.08 on 07:02. EKG was obtained with results earlier in this report. CXR shows no acute disease. ED physician has reviewed this report and agrees. Patient will be admitted by Dr. Alfredo at 04:15. Patient is stable at this time. - Differential Dx - Cardiopulmonary Differential Diagnoses - Cardiopulmonary: Atrial Fibrillation, CAD, CHF, Exacerbation Of COPD, Myocardial Infarction, Pulmonary Embolism - Diagnoses Provider Diagnoses: Atrial fibrillation with rapid ventricular response, Hypotension, Diarrhea - Physician Notifications Discussed Care Of Patient With: David Alfredo Time Discussed With Above Provider: 03:04 Instructed by Provider To: Other - I consulted with Dr. Alfredo, mobile manager , regarding patient care. He will admit the patient to [facility]. - Critical Care Time Critical Care Time: 30-74 min - 30 minutes Discharge - Discharge Plan Condition: Fair Disposition: ADMITTED TO [facility] Discharge Disposition Comment: By Dr. Alfredo. The documentation as recorded by the Velvet alonso Thomas accurately reflects the service I personally performed and the decisions made by me, Candy Price MD.
[2017-02-17] MEDS: cefTRIAXone VIAL(*) 1,000 MG in NS 0.9% 50 ML* 50 ML IVPB SCH (12:09)
[2017-02-18] MEDS: Heparin VIAL(*) 5000 UNITS/ML VIAL (FIVE THOUSAND) SUBCUT SCH (05:21)
[2017-02-18] MEDS: Omeprazole CAP* 20 MG PO SCH (05:21)
[2017-02-18] MEDS: IPRATROPIUM RESP MDI INH SCH (05:34)
[2017-02-18] MEDS: ALBUTEROL INH SCH (05:34)
[2017-02-18] MEDS ORDERED: ALBUTEROL INH PRN (05:47)
[2017-02-18] MEDS ORDERED: IPRATROPIUM RESP MDI INH PRN (05:47)
[2017-02-18 06:23] LABS: Hematocrit 32 % (35-47); Hemoglobin 10.7 g/dl (12.0-16.0); Mean Corpuscular HGB Conc 34 g/dl (31-36); Mean Corpuscular Hemoglobin 34 pg (27-31); Mean Corpuscular Volume 100 fL (80-97); Mean Platelet Volume 10 um3 (7.4-10.4); Red Blood Count 3.18 10^6/ul (4.0-5.4); Red Cell Distribution Width 14 % (10.5-15); White Blood Count 14.3 10^3/ul (3.5-10.8)
[2017-02-18 06:41] LABS: BUN/Creatinine Ratio 22.8 (8-20); EGFR African American 92.3 (>60); EGFR Non-African American 71.7 (>60); Magnesium 2.7 mg/dL (1.9-2.7); Potassium 4.6 mmol/L (3.5-5.0)
[2017-02-18 06:46] LABS: Troponin I 0.06 ng/mL (<0.04)
--- NOTE | 2017-02-18 08:07 | DCNOTE ---
Patient feeling much improved this morning. Reports energy improved, diarrhea has resolved, breathing easier. Still not much appetite but has been taking fluids. On exam, RRR, s1 and s2 present, no m/g/r, abd soft, NTND, BS+, lungs with some rales in bases B/L, otherwise clear, no LE edema Remains in NSR Will ambulate patient, see if we can get off of O2. OLAMIDE resolved, demand- mediated trop elevation improving. Plan to discharge home today on a few additional days of ABx for UTI. Slowly resume anti-hypertensives as outpatient. Follow-up with PCP.
[2017-02-18 08:18] VITALS: BP 103/49
[2017-02-18] MEDS: Docusate CAP* 100 MG PO SCH (08:23)
[2017-02-18] MEDS: Atorvastatin* 20 MG TAB PO SCH (08:23)
[2017-02-18] MEDS: Sertraline* 25 MG TAB PO SCH (08:24)
[2017-02-18] MEDS: Aspirin Low Dose CHEW TAB* 81 MG PO SCH (08:24)
[2017-02-18] MEDS: cefTRIAXone VIAL(*) 1,000 MG in NS 0.9% 50 ML* 50 ML IVPB SCH (11:07)
--- NOTE | 2017-02-19 04:35 | DS ---
CC: Dr. Suggs * DISCHARGE SUMMARY: DATE OF ADMISSION: 02/17/17 DATE OF DISCHARGE: 02/18/17 PRIMARY CARE PHYSICIAN: Dr. Suggs. PRINCIPAL DISCHARGE DIAGNOSES: 1. Viral gastroenteritis. 2. Urinary tract infection. 3. Atrial fibrillation. 4. Lactic acidosis. 5. Mild troponin elevation. STUDIES DONE DURING HOSPITALIZATION: Chest x-ray, impression; cardiomegaly. DISCHARGE MEDICATION REGIMEN: 1. Keflex 250 mg by mouth 4 times daily. 2. Zoloft 25 mg by mouth daily. 3. Simvastatin 40 mg by mouth daily. 4. Lisinopril 20 mg by mouth daily to begin 02/21/17. 5. Metoprolol tartrate 50 mg by mouth daily to begin 02/19/17. 6. Multivitamin 1 tablet by mouth daily. 7. Albuterol 2.5 mg inhale every 4 hours as needed for shortness of breath or wheezing. 8. Aspirin 81 mg by mouth daily. 9. Nitroglycerin 0.4 mg sublingual as needed for angina. 10. Calcium carbonate and vitamin D 2 tablets by mouth daily. 11. Combivent 1 puff inhale 4 times daily. 12. Naproxen 1 tablet by mouth every 6 hours as needed for pain. HISTORY OF PRESENT ILLNESS AND HOSPITAL SUMMARY: Please see the full history and physical by Dr. David Alfredo for full details. Briefly, Ms. Hanks is a 71- year-old female who presented to the hospital with subjective fever and chills, diarrhea, nausea, and dry heaves. On arrival to the hospital, the patient was found to be in AFib with RVR with heart rates in the 140s. She does have a history of atrial fibrillation. However, this has been few and far between. She is not currently on anticoagulation for this. In the emergency department, the patient was given 10 mg of IV diltiazem, which helped convert her back in normal sinus rhythm. However, she had significant hypotension after this. The patient had an elevated lactate of 3.9 and a mild troponin elevation of 0.05 that peaked at 0.1. The patient was resuscitated with IV fluids with improvement in her blood pressures. She did have significant leukocytosis of 16 that increased to 20 and then subsequently came back down to 14. Her urinalysis was positive and although she did not have any clear signs of dysuria, she was having some abdominal discomfort and combined with her leukocytosis, decision was made her to treat her antibiotics. She was given ceftriaxone in the hospital and converted to p.o. Keflex on discharge. The patient's lactic acidosis resolved, renal failure resolved with IV fluids and she was feeling much improved. We did have some difficulty weaning the patient off oxygen and she still had some hypoxia with ambulation. So, she will be discharged on home oxygen, which she has had in the past. The patient will need to follow up closely with her PCP. Of note, she did have an elevated TSH, although this was is in the setting of acute illness. This should be rechecked in 4 to 6 weeks. On reviewing the patient's lab work, she did have a very elevated procalcitonin of 111; however, as noted above there were no clear signs of infection outside of a possible urinary tract infection, but again she will need close PCP followup. TIME SPENT: Total time spent on this discharge 45 minutes. This is a summary of hospitalization. Please see the full medical record for further details. [id number]/[facility] #: [id number] MTDD
== END 2017-02-18 12:26 | disposition home or self-care (01) ==
LOC: ED 01:11 → MEDTELE 04:06
PROVIDERS: ADMIT Hospitalist; ATTEND Hospitalist
DX: A08.4 Viral intestinal infection, unspecified (principal); N39.0 Urinary tract infection, site not specified; I48.91 Unspecified atrial fibrillation; E87.2 Acidosis; I95.9 Hypotension, unspecified; I25.10 Atherosclerotic heart disease of native coronary artery without angina pectoris; I25.2 Old myocardial infarction; Z95.5 Presence of coronary angioplasty implant and graft; J44.9 Chronic obstructive pulmonary disease, unspecified; Z79.899 Other long term (current) drug therapy; Z87.891 Personal history of nicotine dependence; R19.7 Diarrhea, unspecified
CPT/HCPCS: 36415; 71010; 80048; 80053; 81003; 81015; 82150; 82550; 82553; 83605; 83630; 83690; 83735; 83880; 84145; 84443; 84484; 85025; 85610; 85730; 87040; 87077; 87086; 87186; 87493; 93005; 94760; 96361; 96365; 96366; 96367; 96372; 96375; 99291; A9270-GY; G0378; J0696; J1644; J2405; J3475

== ENCOUNTER 2017-02-26 02:32 | Observation (INO) | payer MEDICARE ==
[2017-02-26] MEDS ORDERED: NS 0.9% 1000 ML* 1,000 ML IV ONE (03:09)
[2017-02-26] MEDS ORDERED: Acetaminophen TAB* 325 MG PO ONE (03:09)
[2017-02-26 03:22] LABS: Hematocrit 35 % (35-47); Hemoglobin 11.9 g/dl (12.0-16.0); Mean Corpuscular HGB Conc 34 g/dl (31-36); Mean Corpuscular Hemoglobin 33 pg (27-31); Mean Corpuscular Volume 95 fL (80-97); Mean Platelet Volume 9 um3 (7.4-10.4); Red Blood Count 3.66 10^6/ul (4.0-5.4); Red Cell Distribution Width 14 % (10.5-15)
[2017-02-26 03:35] LABS: Albumin 3.5 g/dL (3.2-5.2); BUN/Creatinine Ratio 14.9 (8-20); C Reactive Protein 142.06 mg/L (< 5.00); EGFR African American 99.5 (>60); EGFR Non-African American 77.4 (>60); Globulin 3.6 g/dL (2-4); Potassium 3.8 mmol/L (3.5-5.0); Total Bilirubin 0.7 mg/dL (0.2-1.0); Total Protein 7.1 g/dL (6.4-8.9)
[2017-02-26 03:42] LABS: Troponin I 0.07 ng/mL (<0.04)
[2017-02-26] MEDS ORDERED: Cefepime(*) 1 GM in NS 0.9% 50 ML* 50 ML IVPB ONE (04:00)
[2017-02-26] MEDS ORDERED: Levofloxacin 750 MG IVPREMIX(* 750 MG/150 ML BAG IVPB ONE (04:09)
[2017-02-26] MEDS ORDERED: methylPREDNISolone 125 MG* 2 ML VIAL IV ONE (04:09)
[2017-02-26] MEDS: Albuterol/Ipratropium NEB.SOL* Albuterol 2.5 MG/Ipratropium 0.5 MG 3 ML INH SCH ×3 (04:48→04:52)
[2017-02-26 05:04] LABS: Urine Bacteria 3+ (Absent); Urine Bilirubin Negative (Negative); Urine Glucose Negative (Negative); Urine Nitrite Negative (Negative)
--- NOTE | 2017-02-26 05:23 | HP ---
H&P (Free Text) History and Physical: PCP: Giovanny Suggs MD Cardiology: Dr Reid Date/Time: 02/26/2017 0520 CC: malaise HPI: Mrs Hanks is a 71YO female HX CAD, COPD, pAFIB [place] [facility] [place] 02[place]18/2017 for AFIB/RVR & UTI having finished her ABX 5 days ago. Last night she awoke with chills, rigors, & malaise for which she presents. She reports EMS finding a fever of 104F en route although she was in her usual state of health yesterday. She denies change in her chronic cough, chronic SOB, and chronic sputum production. She denies diarrhea, B/U/F of urine, abdominal pain, earache, sore throat, rash, or wound. Findings are remarkable for fever 39.4C in ED PMedHx CAD/MD/stent x2 COPD HTN HLD Ambulatory Orders Aspirin Low Dose CHEW TAB* [Aspirin Low Dose TAB*] 81 mg PO DAILY 05/16/12 Calcium Carbonate-Vitamin D [Calcium 500-125 mg-Unit] 2 tab PO DAILY 05/16/12 Multivitamins/Minerals TAB* [Thera M Plus TAB*] 1 tab PO DAILY 05/16/12 Nitroglycerin TAB 0.4 MG* 0.4 mg SL SEE INSTRUCTIONS PRN 05/16/12 Sertraline* [Zoloft*] 25 mg PO DAILY 05/16/12 Simvastatin TAB(NF) [Zocor 20 MG (NF)] 40 mg PO DAILY 05/16/12 Albuterol 2.5MG/3ML (0.083%)* [Ventolin 2.5 MG/3 ML NEB.ANGÉLICA*] 2.5 mg INH Q4H PRN 02/17/17 Combivent Respimat (NF) 1 puff INH QID 02/17/17 Naproxen Sodium 220 mg 1 tab PO Q6HR PRN 02/17/17 Lisinopril TAB* [Prinivil TAB 10 MG*] 20 mg PO DAILY #0 02/18/17 Metoprolol Tartrate TAB* [Lopressor TAB*] 50 mg PO DAILY #0 02/18/17 Allergies No Known Allergies Allergy (Verified 02/26/17 02:46) PSurgHx hysterectomy complicated by wound infection, abdominal abscess, & sepsis 2012 ventral hernia repair appendectomy tubal ligation SocHx: quit smoking 2000, 2 cocktails nightly, no recreational drugs; , lives alone; full code status FamHx: positive for CAD, breast CA ROS: as above, otherwise reviewed and all were negative vitals: Vital Signs Temp 36.7 C 02/26/17 05:19 Pulse 105 02/26/17 05:00 Resp 17 02/26/17 05:00 BP 128/63 02/26/17 05:00 Pulse Ox 98 02/26/17 05:00 Intake & Output 02/25/17 02/25/17 02/26/17 11:59 23:59 11:59 Intake Total 1485 Balance 1485 Weight 77.111 kg Intake: IV Fluids 1435 IVPB 50 Constitutional: NAD, normally developed, overweight elderly white female HEENM: atraumatic; sclera/conjunctiva: anicteric/clear; hearing: clinically intact; oropharynx: clear, mucosa moist Neck: soft tissue: non-tender; thyroid: normal Pulmonary: scant bibasilar crackles R>L, good aeration, no accessory muscle use CV: TR/RR, normal S1S2, no carotid bruit, no jugular venous distention, 2+ B DP/ PT, no edema Abdominal: soft, non-distended, non-tender, no rebound/guarding/rigidity, normoactive bowel sounds, no hepatosplenomegaly or masses, no costovertebral angle tenderness Musculoskeletal: general: grossly intact, no palpable tenderness Integumental: normal appearance and texture of exposed skin Psychiatric orientation: AA&O to PPS affect: calm mood: cooperative eye contact: good content: reliable responses: timely insight: good Testing: Lab Results 02/26/17 02/26/17 02/26/17 Range/Units 03:00 03:00 03:00 WBC 19.0 H (3.5-10.8) 10^3/ul RBC 3.66 L (4.0-5.4) 10^6/ul Hgb 11.9 L (12.0-16.0) g/dl Hct 35 (35-47) % MCV 95 (80-97) fL MCH 33 H (27-31) pg MCHC 34 (31-36) g/dl RDW 14 (10.5-15) % Plt Count 276 (150-450) 10^3/ul MPV 9 (7.4-10.4) um3 INR (Anticoag Therapy) 1.17 H (0.89-1.11) Sodium 131 L (133-145) mmol/L Potassium 3.8 (3.5-5.0) mmol/L Chloride 99 L (101-111) mmol/L Carbon Dioxide 22 (22-32) mmol/L Anion Gap 10 (2-11) mmol/L BUN 11 (6-24) mg/dL Creatinine 0.74 (0.51-0.95) mg/dL Est GFR ( Amer) 99.5 (>60) Est GFR (Non-Af Amer) 77.4 (>60) BUN/Creatinine Ratio 14.9 (8-20) Glucose 125 H (70-100) mg/dL Lactic Acid (0.5-2.0) mmol/L Calcium 9.0 (8.6-10.3) mg/dL Total Bilirubin 0.70 (0.2-1.0) mg/dL AST 24 (13-39) U/L ALT 24 (7-52) U/L Alkaline Phosphatase 77 (34-104) U/L Total Creatine Kinase 24 (10-223) U/L CK-MB (CK-2) 1.1 (0.6-6.3) ng/mL Troponin I 0.07 H* (<0.04) ng/mL C-Reactive Protein 142.06 H (< 5.00) mg/L Total Protein 7.1 (6.4-8.9) g/dL Albumin 3.5 (3.2-5.2) g/dL Globulin 3.6 (2-4) g/dL Albumin/Globulin Ratio 1.0 (1-3) Urine Color Urine Appearance Urine pH (5-9) Ur Specific [place] (1.010-1.030) Urine Protein (Negative) Urine Ketones (Negative) Urine Blood (Negative) Urine Nitrate (Negative) Urine Bilirubin (Negative) Urine Urobilinogen (Negative) Ur Leukocyte Esterase (Negative) Urine WBC (Auto) (Absent) Urine RBC (Auto) (Absent) Ur Squamous Epith Cells (Absent) Urine Bacteria (Absent) Hyaline Casts (Absent) Urine Glucose (Negative) Urine Ascorbic Acid (Negative) 02/26/17 02/26/17 Range/Units 03:12 04:24 WBC (3.5-10.8) 10^3/ul RBC (4.0-5.4) 10^6/ul Hgb (12.0-16.0) g/dl Hct (35-47) % MCV (80-97) fL MCH (27-31) pg MCHC (31-36) g/dl RDW (10.5-15) % Plt Count (150-450) 10^3/ul MPV (7.4-10.4) um3 INR (Anticoag Therapy) (0.89-1.11) Sodium (133-145) mmol/L Potassium (3.5-5.0) mmol/L Chloride (101-111) mmol/L Carbon Dioxide (22-32) mmol/L Anion Gap (2-11) mmol/L BUN (6-24) mg/dL Creatinine (0.51-0.95) mg/dL Est GFR ( Amer) (>60) Est GFR (Non-Af Amer) (>60) BUN/Creatinine Ratio (8-20) Glucose (70-100) mg/dL Lactic Acid 1.5 (0.5-2.0) mmol/L Calcium (8.6-10.3) mg/dL Total Bilirubin (0.2-1.0) mg/dL AST (13-39) U/L ALT (7-52) U/L Alkaline Phosphatase (34-104) U/L Total Creatine Kinase (10-223) U/L CK-MB (CK-2) (0.6-6.3) ng/mL Troponin I (<0.04) ng/mL C-Reactive Protein (< 5.00) mg/L Total Protein (6.4-8.9) g/dL Albumin (3.2-5.2) g/dL Globulin (2-4) g/dL Albumin/Globulin Ratio (1-3) Urine Color [place] Urine Appearance Cloudy Urine pH 5.0 (5-9) Ur Specific [place] 1.018 (1.010-1.030) Urine Protein 1+(30 mg/dl) H (Negative) Urine Ketones Negative (Negative) Urine Blood Negative (Negative) Urine Nitrate Negative (Negative) Urine Bilirubin Negative (Negative) Urine Urobilinogen Positive H (Negative) Ur Leukocyte Esterase Trace H (Negative) Urine WBC (Auto) 1+(6-10/hpf) H (Absent) Urine RBC (Auto) Trace(0-2/hpf) (Absent) Ur Squamous Epith Cells Present H (Absent) Urine Bacteria 3+ H (Absent) Hyaline Casts Present H (Absent) Urine Glucose Negative (Negative) Urine Ascorbic Acid * H (Negative) ECG, personally reviewed: sinus tachycardia rate 106, mild ST depression V3-6 & I, Q-waves in II/III/AVF CXR, personally reviewed: no acute process ? haze in the L costophrenic angle Impression: 71F presenting with SIRS uncertain source, recent for UTI DIAGNOSIS & PLAN Primary SIRS unknown source : IV levofloxacin : blood, urine, & sputum CXs : IVFs : supportive care Secondary pAFIB : currently sinus tachycardia : review meds once reconciled CAD/MD/stent x2 : review meds once reconciled COPD : review meds once reconciled HTN : review meds once reconciled HLD : review meds once reconciled Admission Rational: observation for SIRS of unknown source DVTp: heparin SQ Code Status: full HCP: daughterYashira
[2017-02-26] MEDS ORDERED: Albuterol 2.5 MG/3 ML NEB.SOL* (0.083%) INH PRN (05:25)
[2017-02-26] MEDS ORDERED: Acetaminophen TAB* 325 MG PO PRN (07:19)
[2017-02-26] MEDS ORDERED: CMC:Melatonin (NF) 3 MG TAB PO PRN (07:20)
[2017-02-26] MEDS ORDERED: Ondansetron INJ* 2 MG/ML VIAL IV PRN (07:20)
[2017-02-26] MEDS ORDERED: NS 0.9% 1000 ML* 1,000 ML IV SCH ×2 (07:30→20:15)
--- NOTE | 2017-02-26 08:12 | RAD ---
HISTORY: Fever COMPARISONS: June 20, 2016 VIEWS: 1: frontal portable view of the chest at 4:48 AM FINDINGS: LINES AND TUBES: None. CARDIOMEDIASTINAL SILHOUETTE: The cardiomediastinal silhouette is the upper limits of normal in size for portable technique. PLEURA: The costophrenic angles are sharp. No pleural abnormalities are noted. LUNG PARENCHYMA: The lungs are clear. ABDOMEN: The upper abdomen is clear. There is no subphrenic gas. BONES AND SOFT TISSUES: No bone or soft tissue abnormalities are noted. IMPRESSION: NO ACTIVE CARDIOPULMONARY DISEASE.
[2017-02-26] MEDS ORDERED: Lisinopril TAB* 10 MG PO SCH (09:00)
[2017-02-26] MEDS: Atorvastatin* 20 MG TAB PO SCH (09:20)
[2017-02-26] MEDS: Metoprolol Tartrate TAB* 50 mg PO SCH (09:20)
[2017-02-26] MEDS: Aspirin Low Dose CHEW TAB* 81 MG PO SCH (09:20)
[2017-02-26] MEDS: Docusate CAP* 100 MG PO SCH ×2 (09:21→20:04)
[2017-02-26] MEDS: Sertraline* 25 MG TAB PO SCH (09:21)
--- NOTE | 2017-02-26 09:32 | PN ---
Subjective Date of Service: 02/26/17 Interval History: Feels much better, probably at her baseline. Chronic mild cough, no change. No pain, no SOB. No bowel or c/o. Objective Active Medications: Acetaminophen (Tylenol Tab*) 650 mg PO Q6H PRN PRN Reason: FEVER/PAIN Albuterol (Ventolin 2.5 Mg/3 Ml Neb.Gayle*) 2.5 mg INH Q4H PRN PRN Reason: SOB/WHEEZING Aspirin (Aspirin Low Dose Tab*) 81 mg PO DAILY [facility] Last Admin: 02/26/17 09:20 Dose: 81 mg Atorvastatin Calcium (Lipitor*) 20 mg PO DAILY [facility] Last Admin: 02/26/17 09:20 Dose: 20 mg Docusate Sodium (Colace Cap*) 200 mg PO BID [facility] Last Admin: 02/26/17 09:21 Dose: 200 mg Heparin Sodium (Porcine) (Heparin Vial(*)) 5,000 units SUBCUT Q8HR [facility] Levofloxacin/Dextrose (Levaquin 750 Mg Ivpremix(*)) 750 mg in 150 mls @ 100 mls /hr IVPB Q24H [facility] Sodium Chloride (Ns 0.9% 1000 Ml*) 1,000 mls @ 75 mls/hr IV PER RATE [facility] Insulin Human Lispro (Humalog*) 0 units SUBCUT ACHS [facility] PRN Reason: Protocol Lisinopril (Prinivil Tab*) 20 mg PO DAILY [facility] Last Admin: 02/26/17 09:20 Dose: 20 mg Melatonin (Melatonin (Nf)) 3 mg PO BEDTIME PRN; Protocol PRN Reason: Sleep Metoprolol Tartrate (Lopressor Tab*) 50 mg PO DAILY WITH MEAL [facility] Last Admin: 02/26/17 09:20 Dose: 50 mg Omeprazole (Prilosec Cap*) 20 mg PO DAILY@0600 [facility] Ondansetron HCl (Zofran Inj*) 4 mg IV Q6H PRN PRN Reason: NAUSEA Sertraline HCl (Zoloft*) 25 mg PO DAILY [facility] Last Admin: 02/26/17 09:21 Dose: 25 mg Vital Signs 02/26/17 02/26/17 02/26/17 06:30 07:00 07:30 Temperature Pulse Rate 109 103 99 Respiratory 16 15 20 Rate Blood Pressure 115/51 117/43 100/42 (mmHg) O2 Sat by Pulse 95 94 95 Oximetry 02/26/17 07:42 Temperature 98.2 F Pulse Rate 89 Respiratory 18 Rate Blood Pressure 117/52 (mmHg) O2 Sat by Pulse 98 Oximetry Oxygen Devices in Use Now: None Appearance: Alert, partly up in bed. In good spirits. looks ocmfortable. Eyes: No Scleral Icterus Neck: NL Appearance and Movements; NL JVP, No Thyroid Enlargement, Masses Respiratory: Symmetrical Chest Expansion and Respiratory Effort, Clear to Percussion, - - diminished BS BL Cardiovascular: NL Sounds; No Murmurs; No JVD, RRR, No Edema, - Extremities: No Edema, No Clubbing, Cyanosis, - Skin: No Rash or Ulcers, No Nodules or Sclerosis, - Neurological: Alert and Oriented x 3, NL Sensation Result Diagrams: 02/26/17 03:00 02/26/17 03:00 Additional Lab and Data: Lab Results 02/26/17 02/26/17 02/26/17 Range/Units 03:00 03:00 03:00 WBC 19.0 H (3.5-10.8) 10^3/ul RBC 3.66 L (4.0-5.4) 10^6/ul Hgb 11.9 L (12.0-16.0) g/dl Hct 35 (35-47) % MCV 95 (80-97) fL MCH 33 H (27-31) pg MCHC 34 (31-36) g/dl RDW 14 (10.5-15) % Plt Count 276 (150-450) 10^3/ul MPV 9 (7.4-10.4) um3 INR (Anticoag Therapy) 1.17 H (0.89-1.11) Sodium 131 L (133-145) mmol/L Potassium 3.8 (3.5-5.0) mmol/L Chloride 99 L (101-111) mmol/L Carbon Dioxide 22 (22-32) mmol/L Anion Gap 10 (2-11) mmol/L BUN 11 (6-24) mg/dL Creatinine 0.74 (0.51-0.95) mg/dL Est GFR ( Amer) 99.5 (>60) Est GFR (Non-Af Amer) 77.4 (>60) BUN/Creatinine Ratio 14.9 (8-20) Glucose 125 H (70-100) mg/dL Lactic Acid (0.5-2.0) mmol/L Calcium 9.0 (8.6-10.3) mg/dL Total Bilirubin 0.70 (0.2-1.0) mg/dL AST 24 (13-39) U/L ALT 24 (7-52) U/L Alkaline Phosphatase 77 (34-104) U/L Total Creatine Kinase 24 (10-223) U/L CK-MB (CK-2) 1.1 (0.6-6.3) ng/mL Troponin I 0.07 H* (<0.04) ng/mL C-Reactive Protein 142.06 H (< 5.00) mg/L Total Protein 7.1 (6.4-8.9) g/dL Albumin 3.5 (3.2-5.2) g/dL Globulin 3.6 (2-4) g/dL Albumin/Globulin Ratio 1.0 (1-3) 17 Range/Units 03:12 WBC (3.5-10.8) 10^3/ul RBC (4.0-5.4) 10^6/ul Hgb (12.0-16.0) g/dl Hct (35-47) % MCV (80-97) fL MCH (27-31) pg MCHC (31-36) g/dl RDW (10.5-15) % Plt Count (150-450) 10^3/ul MPV (7.4-10.4) um3 INR (Anticoag Therapy) (0.89-1.11) Sodium (133-145) mmol/L Potassium (3.5-5.0) mmol/L Chloride (101-111) mmol/L Carbon Dioxide (22-32) mmol/L Anion Gap (2-11) mmol/L BUN (6-24) mg/dL Creatinine (0.51-0.95) mg/dL Est GFR ( Amer) (>60) Est GFR (Non-Af Amer) (>60) BUN/Creatinine Ratio (8-20) Glucose (70-100) mg/dL Lactic Acid 1.5 (0.5-2.0) mmol/L Calcium (8.6-10.3) mg/dL Total Bilirubin (0.2-1.0) mg/dL AST (13-39) U/L ALT (7-52) U/L Alkaline Phosphatase (34-104) U/L Total Creatine Kinase (10-223) U/L CK-MB (CK-2) (0.6-6.3) ng/mL Troponin I (<0.04) ng/mL C-Reactive Protein (< 5.00) mg/L Total Protein (6.4-8.9) g/dL Albumin (3.2-5.2) g/dL Globulin (2-4) g/dL Albumin/Globulin Ratio (1-3) Assess/Plan/Problems-Billing Assessment: - Patient Problems (1) SIRS (systemic inflammatory response syndrome) Current Visit: Yes Status: Acute Code(s): R65.10 - SIRS OF NON-INFECTIOUS ORIGIN W/O ACUTE ORGAN DYSFUNCTION SNOMED Code(s): 226269754 Comment: T 103.0 in ED, WBC elevated. Continue levofloxacin. C&S pending. (2) Afib Current Visit: No Status: Acute Code(s): I48.91 - UNSPECIFIED ATRIAL FIBRILLATION SNOMED Code(s): 74396412 Comment: PAF, present on admission 02/17. She was schedule for outpt monitoring engineer at [place] 02/26, should re-schedule. (3) CAD (coronary artery disease) Current Visit: No Status: Acute Code(s): I25.10 - ATHSCL HEART DISEASE OF [place] CORONARY ARTERY W/O ANG PCTRS SNOMED Code(s): 56046884 Comment: Continue ASA, metoprolol. Echo ordered. Pt thinks her last echo was 2 yrs ago.
[2017-02-26] MEDS: Insulin LISPRO* 1 UNITS UNIT SUBCUT SCH ×2 (11:51→15:52)
--- NOTE | 2017-02-26 15:44 | ECHO ---
Amended Report Patient: WILLIE ORLANDO [facility] Rec#: [id number] : 1945 Date: 02/26/2017 Age: 71y Height: 162.56 cm / 64.0 in Weight: 74.75 kg / 164.7 lbs Sex: F BSA: 1.8 Room#: [facility] Admit Date#: 02/26/2017 Type: Inpatient Referring: Alexis You MD Reading: Gen Day MD Orthotics Technician: Claudia Hernandez RDCS CC: Marquis Suggs MD Transthoracic Echocardiogram Indication: CAD, A-fib BP: 117/52 HR: 74 Rhythm: NSR with PACs Findings History: CAD with stents x2, COPD, PAF, HTN, HLD, and former smoker. Technical Comments: The study quality is fair. The study is technically limited due to poor apical windows. Completed at 1215. Left Ventricle: The left ventricular chamber size is mildly dilated. There is no left ventricular hypertrophy. There is a focal wall motion abnormality present.There is virtual akinesis to the proximal inferior, inferoseptal and low posterolateral wall. There is moderately decreased left ventricular systolic function. The estimated ejection fraction is 35-40%. Abnormal left ventricular diastolic function is observed. The left ventricular diastolic filling pattern is consistent with pseudonormalization. Left Atrium: The left atrium is moderate to severely dilated. Right Ventricle: The right ventricular cavity size is normal. The right ventricular global systolic function is normal. Right Atrium: The right atrium is mildly dilated. Aortic Valve: The aortic valve is trileaflet. The aortic valve leaflets are mildly thickened. There is a trace of aortic regurgitation. There is no evidence of aortic stenosis. Mitral Valve: The mitral valve leaflets are mildly thickened. There is moderate to severe mitral regurgitation. Probably closer to severe, with systolic reversal in pulmonary vein. Tricuspid Valve: The tricuspid valve leaflets are normal. There is mild tricuspid regurgitation. The right ventricular systolic pressure is estimated at 38 mmHg. There is evidence of mild pulmonary hypertension. There is no tricuspid stenosis. Pulmonic Valve: The pulmonic valve appears normal. There is a trace pulmonic regurgitation. There is no pulmonic stenosis. Pericardium: There is no significant pericardial effusion. A pericardial fat pad is visualized. Aorta: There is no dilatation of the ascending aorta. There is no dilatation of the aortic arch. The aortic root is normal in size. Pulmonary Artery: The main pulmonary artery is not well visualized. Venous: The inferior vena cava is dilated. There is a greater than 50% respiratory change in the inferior vena cava dimension. Conclusions Left ventricular systolic function is at the lower limits of normal. There is a focal wall motion abnormality present.There is virtual akinesis to the proximal inferior, inferoseptal and low posterolateral wall. There is moderately decreased left ventricular systolic function. The estimated ejection fraction is 35-40%. The left ventricular diastolic filling pattern is consistent with pseudonormalization. The left atrium is moderate to severely dilated. There is moderate to severe mitral regurgitation. Probably closer to severe, with systolic reversal in pulmonary vein. There is mild tricuspid regurgitation. There is evidence of mild pulmonary hypertension. There is a trace pulmonic regurgitation. Compared to report of study from 02/12/2012 the degree of mitral regurgitation has increased (was mild to moderate), the LV systolic function is similar(was 35-40%, but that was with less MR). Measurements Name Value Normal Range RVIDd (AP) 2D 3.2 cm (0.9 - 2.6) RVDdMajor (2D) 3.1 cm (2.2 - 4.4) RVAW (2D) 0.6 cm (0.2 - 0.5) RAd ISD 4CH 5.3 cm (3.4 - 4.9) RA (A4C)W 3.6 cm (2.9 - 4.6) IVSd (2D) 1 cm (0.6 - 1) LVPWd (2D) 1 cm (0.6 - 1) LVIDd (2D) 5.45 cm (3.6 - 5.4) LVIDs (2D) 4.1 cm - LV FS (2D) 23 % (25 - 45) Aortic Annulus 1.9 cm (1.4 - 2.6) Ao root diameter (2D) 2.9 cm (2.1 - 3.5) Ascending Ao 2.6 cm (2.1 - 3.4) Aortic arch 2.5 cm (1.8 - 3.4) LA dimension (AP) 2D 4.9 cm (2.3 - 3.8) LAd ISD 4CH 6.1 cm (2.9 - 5.3) LA ISD 4CH W 5.1 cm (2.5 - 4.5) Name Value Normal Range LA ESV SP 4CH (A/L) 76 ml - LA ESV SP 2CH (A/L) 125 ml - LA ESV BP (A/L) 98 ml - LA ESV BP (A/L) index 54.36 ml/m2 - LA ESV SP 4CH (MOD) 71 ml - LA ESV SP 2CH (MOD) 122 ml - Name Value Normal Range MV E-wave Vmax 0.87 m/sec - MV deceleration time 287.4 msec - MV A-wave Vmax 1.04 m/sec - MV E:A ratio 0.84 ratio - LV septal e' Vmax 0.05 m/sec - LV lateral e' Vmax 0.12 m/sec - LV E:e' septal ratio 17.4 ratio - LV E:e' lateral ratio 7.25 ratio - Name Value Normal Range AV Vmax 1.51 m/sec - AV VTI 30.71 cm - AV peak gradient 9.13 mmHg - AV mean gradient 5.42 mmHg - LVOT Vmax 0.98 m/sec - LVOT VTI 21 cm - LVOT peak gradient 3.88 mmHg - LVOT mean gradient 1.95 mmHg - KAMILLE Vmax 0.67 m/sec - Name Value Normal Range MR Vmax 4.7 m/sec - MR VTI 149.4 cm - MR volume (PISA) 45 ml - MR flow (PISA) 134 ml/sec - MR ERO 3 cm2 - MR PISA radius 0.8 cm - MR alias Vmax 35.34 cm/sec - Name Value Normal Range TR Vmax 2.4 m/sec - TR peak gradient 23 mmHg - RAP 15 mmHg - RVSP 38 mmHg - IVC diameter 2.2 cm - Name Value Normal Range PV Vmax 1.09 m/sec - PV peak gradient 4.79 mmHg -
[2017-02-27] MEDS ORDERED: Levofloxacin 750 MG IVPREMIX(* 750 MG/150 ML BAG IVPB SCH (04:00)
[2017-02-27] MEDS ORDERED: Omeprazole CAP* 20 MG PO SCH (06:00)
[2017-02-27] MEDS: Heparin VIAL(*) 5000 UNITS/ML VIAL (FIVE THOUSAND) SUBCUT SCH ×2 (06:15→12:22)
[2017-02-27] MEDS: Docusate CAP* 100 MG PO SCH (08:39)
[2017-02-27] MEDS: Atorvastatin* 20 MG TAB PO SCH (08:39)
[2017-02-27] MEDS: Sertraline* 25 MG TAB PO SCH (08:40)
[2017-02-27] MEDS: Aspirin Low Dose CHEW TAB* 81 MG PO SCH (08:40)
[2017-02-27] MEDS: Metoprolol Tartrate TAB* 50 mg PO SCH (08:42)
[2017-02-27 08:43] VITALS: BP 119/54
[2017-02-27] MEDS ORDERED: Lisinopril TAB* 5 MG PO SCH (09:00)
[2017-02-27] MEDS ORDERED: Lisinopril TAB* 10 MG PO ONE (09:37)
[2017-02-27] MEDS ORDERED: Levofloxacin TAB* 500 MG PO SCH (10:00)
[2017-02-27 10:28] LABS: Hematocrit 34 % (35-47); Hemoglobin 11.2 g/dl (12.0-16.0); Mean Corpuscular HGB Conc 33 g/dl (31-36); Mean Corpuscular Hemoglobin 32 pg (27-31); Mean Corpuscular Volume 97 fL (80-97); Mean Platelet Volume 9 um3 (7.4-10.4); Red Cell Distribution Width 14 % (10.5-15); White Blood Count 16.4 10^3/ul (3.5-10.8)
--- NOTE | 2017-02-27 11:11 | DS ---
CC: Dr. Suggs; Dr. Reid, [facility] * DISCHARGE SUMMARY: DATE OF ADMISSION: 02/26/17 DATE OF DISCHARGE: 02/27/17 HOSPITAL COURSE: This 71-year-old woman presented with malaise. She has a chronic cough. She really denied any other complaints and note she had finished an antibiotic for UTI about 5 days previous to this, she woke with chills and rigors. In the emergency room, her temperature was 39.4. The patient met criteria for SIRS. She was given intravenous levofloxacin. Influenza nasal rapid test was sent. Urine culture showed no clinically significant growth of organisms. Three sets of blood cultures were drawn and are negative at the time of this dictation. Her white blood count was 19.0. Repeat CBC is pending at the time of this dictation. The patient felt much better after the first dose of levofloxacin and was basically at her baseline. She had no further fever. An echocardiogram showed ejection fraction of 35% to 40%, which I suspect is similar to what she has had in the past. She knew she had a low ejection fraction. Lisinopril was held the first day due to concerns about her blood pressure. She was given half her usual dose 10 mg on the day of discharge. The wrong form of metoprolol was recorded and she received metoprolol tartrate 50 mg each morning. She was instructed to resume her usual doses of metoprolol succinate as well as lisinopril at home. FINAL DIAGNOSES: 1. Fever of uncertain etiology. 2. Cardiomyopathy. 3. History of paroxysmal atrial fibrillation. 4. Coronary artery disease. DISCHARGE MEDICATIONS: 1. Levofloxacin 500 mg daily for 5 days. 2. Metoprolol succinate 50 mg daily. 3. Nitroglycerin 0.4 mg sublingual p.r.n. 4. Aspirin 81 mg daily. 5. Multivitamin with mineral 1 daily. 6. Calcium carbonate with vitamin D 2 daily. 7. Sertraline 25 mg daily. 8. Simvastatin 40 mg daily. 9. Combivent Respimat 1 puff four times a day. 10. Naproxen 220 mg every 6 hours p.r.n. 11. Albuterol 2.5 mg by nebulizer every 4 hours p.r.n. 12. Lisinopril 20 mg daily. [id number]/[facility] #: [id number] [facility]
--- NOTE | 2017-02-27 12:03 | ED ---
Brown Handy Benjamin, scribed for Melida Thorne MD on 02/26/17 at 0407 . HPI Febrile Illness - HPI Summary HPI Summary: 71yo female c/o fever and chills around 1130pm yesterday at home. Pt had recent UTI, which pt finished abx tx 5 days ago. Pt is also mildly SOB and has been coughing [employer]. Hx of HTN, afib, COPD, and CHF. - History of Current Complaint Chief Complaint: EDFever Time Seen by Provider: 02/26/17 03:09 Hx Obtained From: Patient Onset/Duration: Started Hours Ago, Still Present Timing: Constant Initial Severity: Mild Current Severity: None Pain Intensity: 0 Pain Scale Used: 0-10 Numeric Aggravating Factors: Nothing Alleviating Factors: Nothing Associated Signs and Symptoms: Chills, Cough, SOB - Additional Pertinent History Primary Care Physician: [id number] - Allergy/Home Medications Allergies/Adverse Reactions: Allergies Allergy/AdvReac Type Severity Reaction Status Date / Time No Known Allergies Allergy Verified 02/26/17 02:46 PMH/Surg Hx/FS Hx/Imm Hx Endocrine/Hematology History: Denies: Hx Diabetes Cardiovascular History: Reports: Hx Angina, Hx Congestive Heart Failure, Hx Coronary Artery Disease, Hx Myocardial Infarction Denies: Hx Hypercholesterolemia, Hx Valvular Heart Disease Respiratory History: Reports: Hx Chronic Obstructive Pulmonary Disease (COPD), Other Respiratory Problems/Disorders - copd Denies: Hx Asthma Sensory History: Reports: Hx Contacts or Glasses - only reading glasses Denies: Hx Hearing Aid Opthamlomology History: Reports: Hx Contacts or Glasses - only reading glasses - Surgical History Surgery Procedure, Year, and Place: HYSTERECTOMY, 01/30/12. coronary stents, hernia repair Hx Anesthesia Reactions: No Infectious Disease History: No Infectious Disease History: Denies: Hx Hepatitis, Traveled Outside the [place] in Last 30 Days - Family History Known Family History: Positive: Cardiac Disease - Social History Occupation: Retired Lives: With Family Alcohol Use: Daily Alcohol Amount: 2 cocktails every night Substance Use Type: Reports: None Smoking Status (MU): Former Smoker Review of Systems Positive: Fever, Chills Eyes: Negative ENT: Negative Cardiovascular: Negative Positive: Shortness Of Breath, Cough Gastrointestinal: Negative Genitourinary: Negative Musculoskeletal: Negative Skin: Negative Neurological: Negative Psychological: Normal All Other Systems Reviewed And Are Negative: Yes Physical Exam - Summary Physical Exam Summary: Appearance: Non-toxic well-Appearing, no pain distress, well nourished Skin: warm, skin color reflects adequate perfusion, dry, no acute skin lesions Head Exam: Normal Eye Exam: EOMI, PERRL, conjunctiva clear ENT: pharynx nml, TM nml Neck exam: Supple, nontender Respiratory Exam: CTA, tachypnic with bibasilar crackles. no rales, no rhonchi , no wheezes Cardiovascular Exam: mildly tachycardic, S1, S2, No Murmur, No rub, No gallops, pulses symmetrical Abdomen Description: Nontender, Soft, no guarding, no rebound, nondistended, no organomegaly Bowel Sounds: Present Musculoskeletal: Normal, Strength/ROM Intact Neurological Exam: nml, sens/motor intact, A&Ox3, no cerebellar dysfunction Psychological Exam: affect/mood appropriate Triage Information Reviewed: Yes Vital Signs On Initial Exam: Initial Vitals Temp Pulse Resp BP Pulse Ox 103.0 F 106 14 114/73 24 02/26/17 02:41 02/26/17 02:41 02/26/17 02:41 02/26/17 02:41 02/26/17 02:41 Vital Signs Reviewed: Yes Diagnostics - Vital Signs Vital Signs Temp Pulse Resp BP Pulse Ox 02/26/17 03:00 21 117/60 02/26/17 02:47 104 18 96 02/26/17 02:45 114/73 02/26/17 02:41 103.0 F 106 14 114/73 24 - Laboratory Lab Results: Lab Results 02/26/17 02/26/17 02/26/17 Range/Units 03:00 03:00 03:00 WBC 19.0 H (3.5-10.8) 10^3/ul RBC 3.66 L (4.0-5.4) 10^6/ul Hgb 11.9 L (12.0-16.0) g/dl Hct 35 (35-47) % MCV 95 (80-97) fL MCH 33 H (27-31) pg MCHC 34 (31-36) g/dl RDW 14 (10.5-15) % Plt Count 276 (150-450) 10^3/ul MPV 9 (7.4-10.4) um3 INR (Anticoag Therapy) 1.17 H (0.89-1.11) Sodium 131 L (133-145) mmol/L Potassium 3.8 (3.5-5.0) mmol/L Chloride 99 L (101-111) mmol/L Carbon Dioxide 22 (22-32) mmol/L Anion Gap 10 (2-11) mmol/L BUN 11 (6-24) mg/dL Creatinine 0.74 (0.51-0.95) mg/dL Est GFR ( Amer) 99.5 (>60) Est GFR (Non-Af Amer) 77.4 (>60) BUN/Creatinine Ratio 14.9 (8-20) Glucose 125 H (70-100) mg/dL Lactic Acid (0.5-2.0) mmol/L Calcium 9.0 (8.6-10.3) mg/dL Total Bilirubin 0.70 (0.2-1.0) mg/dL AST 24 (13-39) U/L ALT 24 (7-52) U/L Alkaline Phosphatase 77 (34-104) U/L Total Creatine Kinase 24 (10-223) U/L CK-MB (CK-2) 1.1 (0.6-6.3) ng/mL Troponin I 0.07 H* (<0.04) ng/mL C-Reactive Protein 142.06 H (< 5.00) mg/L Total Protein 7.1 (6.4-8.9) g/dL Albumin 3.5 (3.2-5.2) g/dL Globulin 3.6 (2-4) g/dL Albumin/Globulin Ratio 1.0 (1-3) 02/26/17 Range/Units 03:12 WBC (3.5-10.8) 10^3/ul RBC (4.0-5.4) 10^6/ul Hgb (12.0-16.0) g/dl Hct (35-47) % MCV (80-97) fL MCH (27-31) pg MCHC (31-36) g/dl RDW (10.5-15) % Plt Count (150-450) 10^3/ul MPV (7.4-10.4) um3 INR (Anticoag Therapy) (0.89-1.11) Sodium (133-145) mmol/L Potassium (3.5-5.0) mmol/L Chloride (101-111) mmol/L Carbon Dioxide (22-32) mmol/L Anion Gap (2-11) mmol/L BUN (6-24) mg/dL Creatinine (0.51-0.95) mg/dL Est GFR ( Amer) (>60) Est GFR (Non-Af Amer) (>60) BUN/Creatinine Ratio (8-20) Glucose (70-100) mg/dL Lactic Acid 1.5 (0.5-2.0) mmol/L Calcium (8.6-10.3) mg/dL Total Bilirubin (0.2-1.0) mg/dL AST (13-39) U/L ALT (7-52) U/L Alkaline Phosphatase (34-104) U/L Total Creatine Kinase (10-223) U/L CK-MB (CK-2) (0.6-6.3) ng/mL Troponin I (<0.04) ng/mL C-Reactive Protein (< 5.00) mg/L Total Protein (6.4-8.9) g/dL Albumin (3.2-5.2) g/dL Globulin (2-4) g/dL Albumin/Globulin Ratio (1-3) Result Diagrams: 02/27/17 10:15 02/26/17 03:00 Lab Statement: Any lab studies that have been ordered have been reviewed, and results considered in the medical decision making process. - Radiology CXR Xray Interpretation: Positive (See Comments) - left lower lobe infiltrate. Radiology Interpretation Completed By: ED Physician - EKG 0630. Cardiac Rate: Tachycardia - 106bpm EKG Rhythm: Sinus Tachycardia EKG Interpretation: Q waves in 2, 3, and avF Course/Dx - Course Course Of Treatment: Reviewed pts medication and allergy lists. Blood pressure noted. - Diagnoses Provider Diagnoses: Pneumonia, Sepsis Discharge - Discharge Plan Condition: Improved Disposition: ADMITTED TO [facility] documentation as recorded by the Brown alonso Benjamin accurately reflects the service I personally performed and the decisions made by Fadumo lyles Afoma Frances, MD.
== END 2017-02-27 13:35 | disposition home or self-care (01) ==
LOC: ED 02:32 → MED 06:00
PROVIDERS: ADMIT Hospitalist; ATTEND Internal Medicine
DX: R50.9 Fever, unspecified (principal); I42.9 Cardiomyopathy, unspecified; I48.0 Paroxysmal atrial fibrillation; I25.10 Atherosclerotic heart disease of native coronary artery without angina pectoris; E78.5 Hyperlipidemia, unspecified; J44.9 Chronic obstructive pulmonary disease, unspecified; I25.2 Old myocardial infarction; Z95.5 Presence of coronary angioplasty implant and graft; R06.02 Shortness of breath; R94.31 Abnormal electrocardiogram [ECG] [EKG]; I49.1 Atrial premature depolarization; I51.7 Cardiomegaly; Z87.891 Personal history of nicotine dependence; Z79.82 Long term (current) use of aspirin; Z79.899 Other long term (current) drug therapy
CPT/HCPCS: 36415; 71010; 80053; 81003; 81015; 82550; 82553; 83036; 83605; 84484; 85025; 85027; 85610; 86140; 87040; 87086; 87502; 93005; 93306; 94640; 94760; 96365; 96366; 96367; 96375; 99284; A9270-GY; G0378; J0692; J1644; J2930

== ENCOUNTER → 2017-04-16 11:35 | Emergency (ER) | payer MEDICARE ==
[~2017-04-16 11:35] MED LIST: Iohexol 350* (CONTRAST) 500 ML MDV IV ONE; Meclizine TAB* 12.5 MG PO ONE; Metoclopramide IV* 5 MG/ML 2 ML VIAL IV ONE; Morphine INJ* 4 MG/ML 1 ML CARPUJECT IV ONE; Morphine INJ* 4 MG/ML 1 ML CARPUJECT ONE; NS 0.9% 1000 ML* 1,000 ML IV ONE; Ondansetron INJ* 2 MG/ML VIAL IV ONE; Ondansetron INJ* 2 MG/ML VIAL ONE; PROCHLORPERAZINE INJ 5 MG/ML 2 ML VIAL ONE; hydrALAZINE IV* 20 MG/ML VIAL IV SLOW PU ONE; levETIRAcetam IV* 1,000 MG in NS 0.9% 100 ML* 100 ML IVPB ONE
[2017-04-16 12:22] LABS: Hematocrit 40 % (35-47); Hemoglobin 12.9 g/dl (12.0-16.0); Mean Corpuscular HGB Conc 33 g/dl (31-36); Mean Corpuscular Hemoglobin 32 pg (27-31); Mean Corpuscular Volume 97 fL (80-97); Mean Platelet Volume 10 um3 (7.4-10.4); Red Blood Count 4.09 10^6/ul (4.0-5.4); Red Cell Distribution Width 16 % (10.5-15); White Blood Count 5.4 10^3/ul (3.5-10.8)
[2017-04-16 12:39] LABS: ALT 12 U/L (7-52); AST 20 U/L (13-39); Albumin 4.2 g/dL (3.2-5.2); Alkaline Phosphatase 63 U/L (34-104); Anion Gap 9 mmol/L (2-11); BUN/Creatinine Ratio 14.6 (8-20); Blood Urea Nitrogen 12 mg/dL (6-24); C Reactive Protein 10.29 mg/L (< 5.00); CO2 Carbon Dioxide 26 mmol/L (22-32); Calcium 9.3 mg/dL (8.6-10.3); Chloride 104 mmol/L (101-111); EGFR African American 88.4 (>60); EGFR Non-African American 68.7 (>60); Globulin 2.8 g/dL (2-4); Glucose 163 mg/dL (70-100); Magnesium 1.7 mg/dL (1.9-2.7); Potassium 4.1 mmol/L (3.5-5.0); Sodium 139 mmol/L (133-145)
[2017-04-16 12:40] LABS: Troponin I 0.03 ng/mL (<0.04)
--- NOTE | 2017-04-16 12:41 | RAD ---
INDICATION: Dizziness. COMPARISON: There are no prior studies available for comparison. TECHNIQUE: Contiguous axial sections of the brain were obtained from the skull base to the vertex without contrast. FINDINGS: There is subarachnoid hemorrhage filling in the basilar cisterns which appears symmetric. There is hemorrhage in the suprasellar, prepontine, circummesencephalic and quadrigeminal plate cisterns and filling in of a portion of the right sylvian fissure. The ventricles and sulci appear within normal limits. No significant focal abnormality or mass effect is seen. No significant focal osseous abnormality is seen. The visualized portion of the paranasal sinuses and mastoid air cells appear clear. The results of this exam were discussed with the referring clinician. IMPRESSION: LARGE SUBARACHNOID HEMORRHAGE FILLING IN THE BASILAR CISTERNS. RECOMMEND A CT ANGIOGRAM OF THE BRAIN TO ASSESS FOR ANEURYSM.
--- NOTE | 2017-04-16 13:11 | RAD ---
INDICATION: Dizziness. COMPARISON: Comparison is made with a prior chest x-ray study from February 26, 2017. TECHNIQUE: A portable view of the chest was obtained. FINDINGS: The heart is moderately enlarged and unchanged. The lungs are clear. No pleural effusion is seen. IMPRESSION: CARDIOMEGALY UNCHANGED, NO EVIDENCE FOR ACUTE FINDING.
[2017-04-16 13:13] LABS: Alcohol < 10 mg/dL (<10)
[2017-04-16 13:15] LABS: TSH (Thyroid Stimulating Horm) 2.35 mcIU/mL (0.34-5.60)
--- NOTE | 2017-04-16 14:01 | RAD ---
Indication: Subarachnoid hemorrhage. Contrast: Administered 79.1 ml of OMNIPAQUE 350 mg/ml CTA of the neck and head was performed after IV contrast administration. Coronal and sagittal reconstructed images were obtained. Correlation was made with the prior noncontrast CT of the head. Extensive subarachnoid hemorrhage is noted. Atherosclerotic aorta is noted. Atherosclerosis is noted at the origin of the left common carotid artery, innominate artery and left subclavian artery. The common carotid arteries are grossly unremarkable. Calcific plaque is noted at the left carotid bulb. Minimal calcific plaque is noted in the right carotid bulb. The cervical carotid arteries demonstrates no evidence of caliber decrease to suggest dissection. Both vertebral arteries are widely patent. The intracranial carotid arteries in the cavernous sinus demonstrates mild atherosclerosis. The left anterior and middle cerebral arteries are unremarkable with no aneurysmal dilatation or branch occlusion identified. The right middle cerebral artery territory demonstrates prominent right middle cerebral artery with a narrow right anterior cerebral artery. The possibility of some spasm in the right A1 segment of the anterior cerebral artery should BE considered. The posterior circulation demonstrates small P1 segments with patent posterior communicating arteries bilaterally. No aneurysmal dilatation is noted. IMPRESSION: Atherosclerosis is noted at the origin of the innominate artery, left subclavian artery. Minimal calcific plaque is noted in the carotid bulb bilaterally. Intracranial circulation demonstrates the intracavernous portions of the internal carotid artery to demonstrate atherosclerosis. No obvious aneurysmal dilatation is noted although the possibility of spasm should BE considered. There is a small A1 segment of the right anterior cerebral artery which may also be due to spasm. Patent posterior communicating artery breasts bilaterally. No evidence of aneurysmal dilatation is identified.
--- NOTE | 2017-04-16 14:17 | ED ---
Velvet Handy Thomas, scribed for Dhaval De La Torre MD on 04/16/17 at 1156 . Complex/Multi-Sys Presentation - HPI Summary HPI Summary: The pt is a 71 y/o F presenting to the ED c/o a headache, nausea, dry heaving, dizziness, neck pain, and generalized weakness that suddenly began this morning. These symptoms are constant. Pt denies fever, CP, palpitations, SOB, and nasal discharge. PMHx includes COPD. The patient used her inhaler before onset of symptoms. - History Of Current Complaint Hx Obtained From: Patient Onset/Duration: Sudden Onset, Lasting Hours - this AM, Still Present Timing: Constant Severity Initially: Moderate Location: Pain At: - head Aggravating Factor(s): None Alleviating Factor(s): None Associated Signs And Symptoms: Positive: Other - Headache, nausea, dry heaving, dizziness, neck pain, and generalized weakness; NEGATIVE: fever, CP, palpitations, SOB, and nasal discharge. - Allergies/Home Medications Allergies/Adverse Reactions: Allergies Allergy/AdvReac Type Severity Reaction Status Date / Time No Known Allergies Allergy Verified 02/26/17 02:46 Home Medications: Home Medications Albuterol/Ipratropium RESP(NF) [Combivent Respimat(NF)] 1 puff INH QID 04/16/17 [History Confirmed 04/16/17] Calcium Carbonate-Vitamin D [Calcium 600 + D] 2 tab PO DAILY 04/16/17 [History Confirmed 04/16/17] Levothyroxine TAB* [Synthroid TAB*] 25 mcg PO DAILY 04/16/17 [History Confirmed 04/16/17] Naproxen Sodium [Naproxen Sodium 220 mg] 440 mg PO DAILY PRN 04/16/17 [History Confirmed 04/16/17] Nitroglycerin TAB 0.4 MG* 0.4 mg SL Q5M PRN 04/16/17 [History Confirmed 04/16/17 ] Sertraline* [Zoloft*] 50 mg PO DAILY 04/16/17 [History Confirmed 04/16/17] PMH/Surg Hx/FS Hx/Imm Hx Previously Healthy: No Endocrine/Hematology History: Denies: Hx Diabetes Cardiovascular History: Reports: Hx Angina, Hx Congestive Heart Failure, Hx Coronary Artery Disease, Hx Myocardial Infarction, Other Cardiovascular Problems /Disorders - HEART ATTACK Denies: Hx Hypercholesterolemia, Hx Valvular Heart Disease Respiratory History: Reports: Hx Chronic Obstructive Pulmonary Disease (COPD), Other Respiratory Problems/Disorders - copd Denies: Hx Asthma Sensory History: Reports: Hx Contacts or Glasses - only reading glasses Denies: Hx Hearing Aid Opthamlomology History: Reports: Hx Contacts or Glasses - only reading glasses - Surgical History Surgery Procedure, Year, and Place: HYSTERECTOMY, 01/30/12. coronary stents, hernia repair Hx Anesthesia Reactions: No Infectious Disease History: Denies: Hx Hepatitis - Family History Known Family History: Positive: Cardiac Disease - Social History Alcohol Use: Daily Alcohol Amount: 2 cocktails every night Hx Substance Use: No Substance Use Type: Reports: None Hx Tobacco Use: Yes Smoking Status (MU): Former Smoker Review of Systems Positive: Other - Generalized weakness. Negative: Fever Negative: Nasal Discharge Negative: Palpitations, Chest Pain Negative: Shortness Of Breath Positive: Nausea, Other - Dry heaving Positive: Other - Neck pain Neurological: Other - Dizziness Positive: Headache All Other Systems Reviewed And Are Negative: Yes Physical Exam - Summary Physical Exam Summary: VITAL SIGNS: Reviewed. GENERAL: Patient is a well-developed and nourished female who is lying comfortable in the stretcher. Patient is not in any acute respiratory distress. HEAD AND FACE: No signs of trauma. No ecchymosis, hematomas or skull depressions. No sinus tenderness. EYES: PERRLA, EOMI x 2, No injected conjunctiva, no nystagmus. No photophobia. EARS: Hearing grossly intact. Ear canals and tympanic membranes are within normal limits. MOUTH: Oropharynx within normal limits. NECK: Supple, trachea is midline, no adenopathy, no JVD, no carotid bruit, no c- spine tenderness, neck with full ROM. No meningeal signs, no Kernig's or brudzinskis signs. CHEST: Symmetric, no tenderness at palpation LUNGS: Clear to auscultation bilaterally. No wheezing or crackles. CVS: Regular rate and rhythm, S1 and S2 present, no murmurs or gallops appreciated. ABDOMEN: Soft, non-tender. No signs of distention. No rebound no guarding, and no masses palpated. Bowel sounds are normal. EXTREMITIES: FROM in all major joints, no edema, no cyanosis or clubbing. NEURO: Alert and oriented x 3. No acute neurological deficits. Speech is normal and follows commands. NIH = 0. SKIN: Dry and warm GCS: 15 Triage Information Reviewed: Yes Vital Signs On Initial Exam: Initial Vitals Temp Pulse Resp BP Pulse Ox 92.8 F 60 12 148/70 97 04/16/17 11:39 04/16/17 11:39 04/16/17 11:39 04/16/17 11:39 04/16/17 11:39 Vital Signs Reviewed: Yes - [place] Coma Scale Best Eye Response: 4 - Spontaneous Best Motor Response: 6 - Obeys Commands Best Verbal Response: 5 - Oriented Diagnostics - Vital Signs Vital Signs Temp Pulse Resp BP Pulse Ox 04/16/17 13:57 95.7 F 61 17 96 04/16/17 13:45 58 13 135/64 98 04/16/17 13:33 62 15 98 04/16/17 13:30 67 20 138/55 97 04/16/17 13:17 139/72 04/16/17 13:00 60 15 151/68 93 04/16/17 12:50 57 13 97 04/16/17 12:13 22 04/16/17 11:39 92.8 F 60 12 148/70 97 - Laboratory Lab Results: Lab Results 04/16/17 04/16/17 04/16/17 Range/Units 12:10 12:10 12:10 WBC (3.5-10.8) 10^3/ul RBC (4.0-5.4) 10^6/ul Hgb (12.0-16.0) g/dl Hct (35-47) % MCV (80-97) fL MCH (27-31) pg MCHC (31-36) g/dl RDW (10.5-15) % Plt Count (150-450) 10^3/ul MPV (7.4-10.4) um3 Neut % (Auto) (38-83) % Lymph % (Auto) (25-47) % Collin % (Auto) (1-9) % Eos % (Auto) (0-6) % Baso % (Auto) (0-2) % Absolute Neuts (auto) (1.5-7.7) 10^3/ul Absolute Lymphs (auto) (1.0-4.8) 10^3/ul Absolute Monos (auto) (0-0.8) 10^3/ul Absolute Eos (auto) (0-0.6) 10^3/ul Absolute Basos (auto) (0-0.2) 10^3/ul Absolute Nucleated RBC 10^3/ul Nucleated RBC % APTT 27.5 (26.0-36.3) seconds Sodium 139 (133-145) mmol/L Potassium 4.1 (3.5-5.0) mmol/L Chloride 104 (101-111) mmol/L Carbon Dioxide 26 (22-32) mmol/L Anion Gap 9 (2-11) mmol/L BUN 12 (6-24) mg/dL Creatinine 0.82 (0.51-0.95) mg/dL Est GFR ( Amer) 88.4 (>60) Est GFR (Non-Af Amer) 68.7 (>60) BUN/Creatinine Ratio 14.6 (8-20) Glucose 163 H (70-100) mg/dL Lactic Acid (0.5-2.0) mmol/L Calcium 9.3 (8.6-10.3) mg/dL Magnesium 1.7 L (1.9-2.7) mg/dL Total Bilirubin 0.80 (0.2-1.0) mg/dL AST 20 (13-39) U/L ALT 12 (7-52) U/L Alkaline Phosphatase 63 (34-104) U/L Troponin I 0.03 (<0.04) ng/mL C-Reactive Protein 10.29 H (< 5.00) mg/L B-Natriuretic Peptide 319 H ( - 100) pg/mL Total Protein 7.0 (6.4-8.9) g/dL Albumin 4.2 (3.2-5.2) g/dL Globulin 2.8 (2-4) g/dL Albumin/Globulin Ratio 1.5 (1-3) TSH 2.35 (0.34-5.60) mcIU/mL Serum Alcohol < 10 (<10) mg/dL 04/16/17 04/16/17 Range/Units 12:10 12:10 WBC 5.4 (3.5-10.8) 10^3/ul RBC 4.09 (4.0-5.4) 10^6/ul Hgb 12.9 (12.0-16.0) g/dl Hct 40 (35-47) % MCV 97 (80-97) fL MCH 32 H (27-31) pg MCHC 33 (31-36) g/dl RDW 16 H (10.5-15) % Plt Count 155 (150-450) 10^3/ul MPV 10 (7.4-10.4) um3 Neut % (Auto) 76.4 (38-83) % Lymph % (Auto) 14.4 L (25-47) % Collin % (Auto) 5.6 (1-9) % Eos % (Auto) 3.0 (0-6) % Baso % (Auto) 0.6 (0-2) % Absolute Neuts (auto) 4.1 (1.5-7.7) 10^3/ul Absolute Lymphs (auto) 0.8 L (1.0-4.8) 10^3/ul Absolute Monos (auto) 0.3 (0-0.8) 10^3/ul Absolute Eos (auto) 0.2 (0-0.6) 10^3/ul Absolute Basos (auto) 0 (0-0.2) 10^3/ul Absolute Nucleated RBC 0 10^3/ul Nucleated RBC % 0 APTT (26.0-36.3) seconds Sodium (133-145) mmol/L Potassium (3.5-5.0) mmol/L Chloride (101-111) mmol/L Carbon Dioxide (22-32) mmol/L Anion Gap (2-11) mmol/L BUN (6-24) mg/dL Creatinine (0.51-0.95) mg/dL Est GFR ( Amer) (>60) Est GFR (Non-Af Amer) (>60) BUN/Creatinine Ratio (8-20) Glucose (70-100) mg/dL Lactic Acid 2.1 H* (0.5-2.0) mmol/L Calcium (8.6-10.3) mg/dL Magnesium (1.9-2.7) mg/dL Total Bilirubin (0.2-1.0) mg/dL AST (13-39) U/L ALT (7-52) U/L Alkaline Phosphatase (34-104) U/L Troponin I (<0.04) ng/mL C-Reactive Protein (< 5.00) mg/L B-Natriuretic Peptide ( - 100) pg/mL Total Protein (6.4-8.9) g/dL Albumin (3.2-5.2) g/dL Globulin (2-4) g/dL Albumin/Globulin Ratio (1-3) TSH (0.34-5.60) mcIU/mL Serum Alcohol (<10) mg/dL Result Diagrams: 04/16/17 12:10 04/16/17 12:10 Lab Statement: Any lab studies that have been ordered have been reviewed, and results considered in the medical decision making process. - Radiology CXR Xray Interpretation: Positive (See Comments) - CARDIOMEGALY UNCHANGED, NO EVIDENCE FOR ACUTE FINDING. ED physician has reviewed this report and agrees. Radiology Interpretation Completed By: Radiologist - CT CT Brain CT Interpretation: Positive (See Comments) - LARGE SUBARACHNOID HEMORRHAGE FILLING IN THE BASILAR CISTERNS. RECOMMEND A CT ANGIOGRAM OF THE BRAIN TO ASSESS FOR ANEURYSM. ED physician has reviewed this report and agrees. GCS 15. 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 Minimal calcific plaque is noted in the carotid bulb bilaterally. Intracranial circulation demonstrates the intracavernous portions of the internal carotid artery to demonstrate atherosclerosis. No obvious aneurysmal dilatation is noted although the possibility of spasm should BE considered. There is a small A1 segment of the right anterior cerebral artery which may also be due to spasm. Patent posterior communicating artery breasts bilaterally. No evidence of aneurysmal dilatation is identified. CT Interpretation Completed By: Radiologist - EKG 13:00 Cardiac Rate: Bradycardia EKG Rhythm: Sinus Bradycardia EKG Interpretation: [address] elevations. Complex Multi-Symp Course/Dx Course Of Treatment: [facility] is delaying the treatment of the patient. They are refusing to send the patient to [facility] and state they need the patient to be sent to a closer facility. Assessment/Plan: The pt is a 71 y/o F presenting to the ED c/o a headache, nausea, dry heaving, dizziness, neck pain, and generalized weakness that suddenly began this morning. These symptoms are constant. Pt denies fever, CP, palpitations, SOB, and nasal discharge. PMHx includes COPD. The patient used her inhaler before onset of symptoms. Test results are without significant abnormality except glucose 163, lactic acid 2.1, BNP 319. Initially, in the physical exam the patient did not have any neurological deficits. NIH score is 0 and the GCS is 15. The patient was initially given IV fluids, Zofran for the nausea and vomiting, and morphine for the pain. The CT head shows LARGE SUBARACHNOID HEMORRHAGE FILLING IN THE BASILAR CISTERNS. RECOMMEND A CT ANGIOGRAM OF THE BRAIN TO ASSESS FOR ANEURYSM. I consulted with Dr. Alford and he also recommends a CTA of the Head and Neck. 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 Minimal calcific plaque is noted in the carotid bulb bilaterally. Intracranial circulation demonstrates the intracavernous portions of the internal carotid artery to demonstrate atherosclerosis. No obvious aneurysmal dilatation is noted although the possibility of spasm should BE considered. There is a small A1 segment of the right anterior cerebral artery which may also be due to spasm. Patent posterior communicating artery breasts bilaterally. No evidence of aneurysmal dilatation is identified. Dr. Alford also reviewed the CT Head and CTA Head and Neck, and he recommends the patient be transferred to [facility]. The patient is hemodynamically stable and alert and oriented x3. I gave the patient Hydralazine to keep the systolic blood pressure below 140. I chose hydralazine because the patients heart rate is only in the 50s. Dispatcher Lamont from [facility] delayed the treatment of the patient. [facility] is refusing to send the patient to [facility] and state they need the patient to be sent to a closer facility. - Diagnoses Differential Diagnoses/HQI/PQRI: Cardiac Ischemia, CVA, Urinary Tract Infection Provider Diagnoses: SAH (subarachnoid hemorrhage) - Physician Notifications Discussed Care Of Patient With: Reginald Alford Time Discussed With Above Provider: 12:44 Instructed by Provider To: Other - Dr. Alford, neurosurgery, recommends transfer of the patient to [facility]. He would like me to keep the blood pressure below 140 systolic. I spoke with him again at 13:13, and he says that he will help in the transfer of the patient. Dr. Alford tells me he will speak with the neurosurgeon at [facility] and that Dr. Alford will call us back. - Critical Care Time Critical Care Time: 75-104 min Discharge - Discharge Plan Condition: Fair Disposition: OTHER Discharge Disposition Comment: Transferred to [facility]. Referrals: Marquis Suggs MD [Primary Care Provider] - The documentation as recorded by the Velvet alonso Thomas accurately reflects the service I personally performed and the decisions made by me, Dhaval De La Torre MD.
[2017-04-16 15:25] VITALS: BP 136/58
== END ==
LOC: ED 11:35
DX: I60.9 Nontraumatic subarachnoid hemorrhage, unspecified (principal); R11.0 Nausea; M54.2 Cervicalgia; Z87.891 Personal history of nicotine dependence
CPT/HCPCS: 36415; 70450; 70496; 70498; 71010; 80053; 80320; 83605; 83735; 83880; 84443; 84484; 85025; 85730; 86140; 93005; 96374; 96375; 99285; A9270-GY; G0480; J0360; J0780; J2270; J2405; J2765; Q9967

== ENCOUNTER 2020-02-20 06:45 | Inpatient (IN) ==
[2020-02-20] MEDS ORDERED: methylPREDNISolone 125 mg 2 ML VIAL IV ONE (06:55)
[2020-02-20] MEDS ORDERED: Albuterol/Ipratropium NEB.SOL (2.5/0.5 MG) 3 ML NEB.SOLN INH ONE (06:55)
[2020-02-20 07:16] LABS: ABS Basophils 0.1 10^3/ul (0-0.2); ABS Eosinophils 0.4 10^3/ul (0-0.6); ABS Lymphocytes 2.9 10^3/ul (1.0-4.8); ABS Monocytes 0.8 10^3/ul (0-0.8); ABS Neutrophils 7.6 10^3/ul (1.5-7.7); Hematocrit 43 % (35-47); Hemoglobin 13.9 g/dL (12.0-16.0); Lymphocyte % 24.7 %; Mean Corpuscular HGB Conc 33 g/dL (31-36); Mean Corpuscular Hemoglobin 35 pg (27-31); Mean Corpuscular Volume 105 fL (80-97); Mean Platelet Volume 9.8 fL (7.4-10.4); Platelet Count 195 10^3/uL (150-450); Red Blood Count 4.03 10^6 /uL (3.70-4.87); Red Cell Distribution Width 15 % (10-15); White Blood Count 11.7 10^3/uL (3.5-10.8)
[2020-02-20] MEDS ORDERED: Furosemide 40 mg/4 ml IV VIAL IV SLOW PU ONE ×2 (07:28→11:24)
[2020-02-20 07:37] LABS: Albumin 4.7 g/dL (3.2-5.2); Albumin/Globulin Ratio 1.6 (1-3); BUN/Creatinine Ratio 13.6 (8-20); C Reactive Protein 16.97 mg/L (<8.01); Calcium 9.3 mg/dL (8.6-10.3); EGFR African American 63.4 (>60); EGFR Non-African American 52.4 (>60); Potassium 4.7 mmol/L (3.5-5.0); Total Bilirubin 0.6 mg/dL (0.2-1.0); Total Protein 7.7 g/dL (6.4-8.9); Troponin I 0.01 ng/mL (<0.03)
[2020-02-20] MEDS ORDERED: NS 0.9% 1000 ml BAG 500 ML IV ONE (07:39)
[2020-02-20] MEDS ORDERED: Azithromycin 500 mg/250 ml NS 500 MG/250 ML BAG IVPB ONE (07:39)
[2020-02-20] MEDS ORDERED: cefTRIAXone 1 gm/50 mL NS BAG 1 GM/50 ML BAG IV ONE (07:39)
[2020-02-20] MEDS ORDERED: Albuterol (2.5 MG) 0.5 % CONC 0.5 ML NEB.SOLN INH ONE (07:56)
[2020-02-20] MEDS ORDERED: Diltiazem IV push/loading dose 5 MG/ML 5 ML vial (25 mg) IV SLOW PU ONE (07:58)
[2020-02-20] MEDS ORDERED: Diltiazem (ADVAN VIAL) 100 MG/100 ML ADDV.BAG IV SCH (08:00)
[2020-02-20 08:53] LABS: Influenza A Molecular Negative (Negative); Influenza B Molecular Negative (Negative)
[2020-02-20] MEDS ORDERED: Albuterol/Ipratropium NEB.SOL (2.5/0.5 MG) 3 ML NEB.SOLN INH SCH (10:00)
[2020-02-20] MEDS ORDERED: Ondansetron 4 mg VIAL 2 MG/ML 2 ml VIAL ONE (10:19)
[2020-02-20] MEDS ORDERED: Amiodarone 360 MG IVPREMIX 360 MG/200 ML BAG IV ONE (11:00)
[2020-02-20] MEDS ORDERED: Amiodarone 150 mg IVPREMIX 150 MG/100 ML BAG IV ONE (11:00)
[2020-02-20] MEDS ORDERED: Ondansetron 4 mg VIAL 2 MG/ML 2 ml VIAL IV ONE (11:03)
[2020-02-20] MEDS: Albuterol/Ipratropium NEB.SOL (2.5/0.5 MG) 3 ML NEB.SOLN INH SCH ×2 (12:14→19:15)
[2020-02-20] MEDS: methylPREDNISolone SOD 40 mg/ml 1 ml VIAL IV SCH ×2 (15:44→23:19)
[2020-02-20] MEDS ORDERED: Furosemide 40 mg/4 ml IV VIAL IV ONE (16:47)
[2020-02-20] MEDS ORDERED: Furosemide 40 mg/4 ml IV VIAL ONE (17:21)
[2020-02-20] MEDS: Amiodarone 360 MG IVPREMIX 360 MG/200 ML BAG IV SCH (17:37)
[2020-02-20] MEDS ORDERED: Buffered Lidocaine 1% SYRIN 1 ml INTRADERM ONE (18:02)
[2020-02-20 18:21] LABS: Urine Appearance Turbid; Urine Bilirubin Negative (Negative); Urine Blood 2+ (Negative); Urine Color Amber; Urine Glucose Negative (Negative); Urine Ketones Negative (Negative); Urine Nitrite Negative (Negative); Urine Protein 2+(100 mg/dL) (Negative); Urine Specific Gravity 1.014 (1.010-1.030); Urine Urobilinogen Negative (Negative)
[2020-02-20 18:28] LABS: Urine Bacteria 3+ (Absent); Urine Red Blood Cell 3+(>10/hpf) (Absent); Urine Squamous Epithelial Cell Present (Absent); Urine Transitional Epithelial Present (Absent); Urine White Blood Cell 2+(11-20/hpf) (Absent)
[2020-02-20] MEDS: Ondansetron 4 mg VIAL 2 MG/ML 2 ml VIAL IV PRN (23:12)
[2020-02-21] MEDS: Albuterol/Ipratropium NEB.SOL (2.5/0.5 MG) 3 ML NEB.SOLN INH SCH ×3 (00:38→13:33)
[2020-02-21] MEDS: Amiodarone 360 MG IVPREMIX 360 MG/200 ML BAG IV SCH (05:04)
[2020-02-21 05:42] LABS: Hematocrit 34 % (35-47); Hemoglobin 11.5 g/dL (12.0-16.0); Mean Corpuscular HGB Conc 34 g/dL (31-36); Mean Corpuscular Hemoglobin 35 pg (27-31); Mean Corpuscular Volume 104 fL (80-97); Mean Platelet Volume 10.4 fL (7.4-10.4); Platelet Count 134 10^3/uL (150-450); Red Blood Count 3.26 10^6 /uL (3.70-4.87); Red Cell Distribution Width 14 % (10-15); White Blood Count 7.6 10^3/uL (3.5-10.8)
[2020-02-21 06:04] LABS: BUN/Creatinine Ratio 19.4 (8-20); Calcium 8.5 mg/dL (8.6-10.3); EGFR Non-African American 49.6 (>60); Magnesium 1.6 mg/dL (1.9-2.7); Phosphorus 4.1 mg/dL (2.5-5.0); Potassium 3.9 mmol/L (3.5-5.0)
[2020-02-21] MEDS ORDERED: Furosemide 40 mg/4 ml IV VIAL IV SLOW PU ONE (07:24)
[2020-02-21] MEDS: Tiotropium Brom/Olodaterol MDI INH SCH (07:46)
[2020-02-21] MEDS: methylPREDNISolone SOD 40 mg/ml 1 ml VIAL IV SCH (07:58)
[2020-02-21] MEDS ORDERED: Potassium Chlor 20 meq TAB.ER PO ONE (08:12)
[2020-02-21] MEDS ORDERED: cefTRIAXone 1 gm/50 mL NS BAG 1 GM/50 ML BAG IVPB SCH (08:30)
[2020-02-21] MEDS ORDERED: Azithromycin 500 mg/250 ml NS 500 MG/250 ML BAG IVPB SCH (09:00)
[2020-02-21] MEDS: Amiodarone 400 mg TAB PO SCH ×2 (09:15→20:36)
[2020-02-21] MEDS: Ondansetron 4 mg VIAL 2 MG/ML 2 ml VIAL IV PRN (10:33)
[2020-02-21] MEDS ORDERED: Magnesium Sulf 4 GM/100 ML IV 4,000 MG/100 ML BAG IVPB ONE (11:00)
[2020-02-21 11:30] LABS: Troponin I 0.03 ng/mL (<0.03)
[2020-02-21] MEDS ORDERED: Flumazenil 0.5 mg/5 ml 0.1 MG/ML 5 ml VIAL ONE (12:50)
[2020-02-21] MEDS ORDERED: Naloxone 4 mg VIAL 0.4 MG/ML 10 ml VIAL (4 mg) ONE (12:51)
[2020-02-21] MEDS ORDERED: fentaNYL 250 mcg/5 ml 50 MCG/ML 5 ml VIAL (250 MCG) ONE (12:51)
[2020-02-21] MEDS ORDERED: Midazolam 10 mg/10 ml VIAL 1 mg/ml 10 ml VIAL (10 mg) ONE (12:51)
[2020-02-21] MEDS ORDERED: Albuterol/Ipratropium NEB.SOL (2.5/0.5 MG) 3 ML NEB.SOLN INH PRN (13:21)
[2020-02-21 21:17] LABS: Troponin I 0.04 ng/mL (<0.03)
[2020-02-22 04:37] LABS: Hematocrit 32 % (35-47); Mean Corpuscular HGB Conc 34 g/dL (31-36); Mean Corpuscular Hemoglobin 35 pg (27-31); Mean Corpuscular Volume 104 fL (80-97); Mean Platelet Volume 10.1 fL (7.4-10.4); Platelet Count 138 10^3/uL (150-450); Red Blood Count 3.11 10^6 /uL (3.70-4.87); Red Cell Distribution Width 15 % (10-15); White Blood Count 10.8 10^3/uL (3.5-10.8)
[2020-02-22 04:55] LABS: BUN/Creatinine Ratio 28.8 (8-20); Calcium 8.6 mg/dL (8.6-10.3); EGFR African American 54.2 (>60); EGFR Non-African American 44.8 (>60); Magnesium 2.7 mg/dL (1.9-2.7); Potassium 4.6 mmol/L (3.5-5.0)
[2020-02-22 05:19] LABS: TSH Ultra Thyroid Stim Horm 1.05 mcIU/mL (0.34-5.60)
[2020-02-22] MEDS: Amiodarone 400 mg TAB PO SCH ×2 (07:38→21:38)
[2020-02-22] MEDS ORDERED: Influenza VAC *QUAD* 2020-21* 0.5 ML SYRINGE IM ONE (09:00)
[2020-02-22] MEDS ORDERED: Furosemide 40 mg/4 ml IV VIAL IV ONE (09:00)
[2020-02-22] MEDS: Tiotropium Brom/Olodaterol MDI INH SCH (09:30)
[2020-02-23] MEDS: Amiodarone 400 mg TAB PO SCH ×2 (08:31→21:33)
[2020-02-23] MEDS: Tiotropium Brom/Olodaterol MDI INH SCH (10:03)
[2020-02-24 07:16] LABS: ABS Eosinophils 0.2 10^3/ul (0-0.6); ABS Lymphocytes 1.2 10^3/ul (1.0-4.8); ABS Monocytes 0.5 10^3/ul (0-0.8); ABS Neutrophils 4.4 10^3/ul (1.5-7.7); Eosinophil % 2.5 %; Hematocrit 32 % (35-47); Hemoglobin 10.9 g/dL (12.0-16.0); Lymphocyte % 18.8 %; Mean Corpuscular HGB Conc 34 g/dL (31-36); Mean Corpuscular Hemoglobin 35 pg (27-31); Mean Corpuscular Volume 104 fL (80-97); Mean Platelet Volume 10.3 fL (7.4-10.4); Platelet Count 106 10^3/uL (150-450); Red Blood Count 3.09 10^6 /uL (3.70-4.87); Red Cell Distribution Width 14 % (10-15); White Blood Count 6.2 10^3/uL (3.5-10.8)
[2020-02-24 07:35] LABS: BUN/Creatinine Ratio 31.5 (8-20); Calcium 8.9 mg/dL (8.6-10.3); Potassium 4.6 mmol/L (3.5-5.0)
[2020-02-24] MEDS: Amiodarone 400 mg TAB PO SCH ×2 (09:01→20:54)
[2020-02-24] MEDS: Tiotropium Brom/Olodaterol MDI INH SCH (10:03)
[2020-02-24] MEDS ORDERED: Furosemide 40 mg/4 ml IV VIAL IV ONE (10:32)
[2020-02-25 06:08] LABS: ABS Eosinophils 0.2 10^3/ul (0-0.6); ABS Lymphocytes 1.1 10^3/ul (1.0-4.8); ABS Monocytes 0.5 10^3/ul (0-0.8); ABS Neutrophils 5.1 10^3/ul (1.5-7.7); Eosinophil % 2.6 %; Hematocrit 34 % (35-47); Hemoglobin 11.4 g/dL (12.0-16.0); Mean Corpuscular HGB Conc 34 g/dL (31-36); Mean Corpuscular Hemoglobin 34 pg (27-31); Mean Corpuscular Volume 102 fL (80-97); Mean Platelet Volume 9.5 fL (7.4-10.4); Nucleated Red Blood Cells % 0.1; Platelet Count 133 10^3/uL (150-450); Red Blood Count 3.31 10^6 /uL (3.70-4.87); Red Cell Distribution Width 14 % (10-15)
[2020-02-25 06:25] LABS: BUN/Creatinine Ratio 29.4 (8-20); Calcium 9.6 mg/dL (8.6-10.3); EGFR African American 64.1 (>60); Potassium 4.5 mmol/L (3.5-5.0)
[2020-02-25] MEDS: Tiotropium Brom/Olodaterol MDI INH SCH (07:54)
[2020-02-25] MEDS: Amiodarone 400 mg TAB PO SCH (09:52)
[2020-02-25] MEDS ORDERED: Furosemide 40 mg/4 ml IV VIAL IV ONE (10:31)
[2020-02-25 12:37] VITALS: BP 116/55
== END 2020-02-25 16:55 | disposition home or self-care (01) | DRG 291 ==
LOC: ED 06:45 → ICU 09:30 → MEDTELE 02-22 14:46
PROVIDERS: ADMIT Nurse Practitioner Family; ATTEND Internal Medicine

== ENCOUNTER 2020-03-14 20:53 | Observation (INO) ==
[2020-03-14 21:23] LABS: ABS Eosinophils 0.4 10^3/ul (0-0.6); ABS Lymphocytes 1.5 10^3/ul (1.0-4.8); ABS Monocytes 0.7 10^3/ul (0-0.8); ABS Neutrophils 5.3 10^3/ul (1.5-7.7); Eosinophil % 4.6 %; Hematocrit 35 % (35-47); Hemoglobin 12.2 g/dL (12.0-16.0); Lymphocyte % 18.8 %; Mean Corpuscular HGB Conc 35 g/dL (31-36); Mean Corpuscular Hemoglobin 35 pg (27-31); Mean Corpuscular Volume 99 fL (80-97); Mean Platelet Volume 9.9 fL (7.4-10.4); Platelet Count 149 10^3/uL (150-450); Red Blood Count 3.49 10^6 /uL (3.70-4.87); Red Cell Distribution Width 14 % (10-15); White Blood Count 7.9 10^3/uL (3.5-10.8)
[2020-03-14 21:34] LABS: Albumin 4.3 g/dL (3.2-5.2); Albumin/Globulin Ratio 1.8 (1-3); BUN/Creatinine Ratio 17.8 (8-20); Calcium 9.6 mg/dL (8.6-10.3); EGFR African American 37.3 (>60); EGFR Non-African American 30.8 (>60); Globulin 2.4 g/dL (2-4); Potassium 4.6 mmol/L (3.5-5.0); Total Bilirubin 0.4 mg/dL (0.2-1.0); Total Protein 6.7 g/dL (6.4-8.9)
[2020-03-14 21:36] LABS: Troponin I 0.01 ng/mL (<0.03)
[2020-03-15] MEDS ORDERED: Al Hydrox/Mg Hydrox/Simet LIQ 30 ML UDC PO PRN (01:24)
[2020-03-15] MEDS ORDERED: Albuterol 2.5mg/3 ml (0.083%) NEB.SOLN INH PRN (01:32)
[2020-03-15] MEDS ORDERED: NS 0.9% 500 ml BAG 500 ML IV ONE ×2 (01:51→02:06)
[2020-03-15] MEDS ORDERED: Regadenoson 0.4 MG/5 ML SYRINGE ONE (07:34)
[2020-03-15] MEDS ORDERED: Aminophylline 25 MG/ML VIAL ONE (07:34)
[2020-03-15] MEDS ORDERED: Calcium/Vitamin D TAB 250/125 TAB PO SCH (09:00)
[2020-03-15] MEDS ORDERED: Tiotropium Brom/Olodaterol MDI INH SCH (09:00)
[2020-03-15 17:51] VITALS: BP 108/55
[2020-03-15] MEDS ORDERED: CMCS:Rosuvastatin 10 mg TAB (NF) PO SCH (21:00)
== END 2020-03-15 18:30 | disposition home or self-care (01) ==
LOC: ED 20:53 → MEDTELE 20:53
PROVIDERS: ADMIT Hospitalist; ATTEND Internal Medicine

== ENCOUNTER 2020-04-15 10:14 | Observation (INO) ==
[2020-04-15 11:42] LABS: ABS Eosinophils 0.2 10^3/ul (0-0.6); ABS Lymphocytes 0.6 10^3/ul (1.0-4.8); ABS Monocytes 0.8 10^3/ul (0-0.8); ABS Neutrophils 6.5 10^3/ul (1.5-7.7); Hematocrit 36 % (35-47); Hemoglobin 12.2 g/dL (12.0-16.0); Lymphocyte % 7.3 %; Mean Corpuscular HGB Conc 34 g/dL (31-36); Mean Corpuscular Hemoglobin 35 pg (27-31); Mean Corpuscular Volume 102 fL (80-97); Mean Platelet Volume 9.6 fL (7.4-10.4); Platelet Count 162 10^3/uL (150-450); Red Blood Count 3.54 10^6 /uL (3.70-4.87); Red Cell Distribution Width 15 % (10-15); White Blood Count 8.1 10^3/uL (3.5-10.8)
[2020-04-15 11:56] LABS: Urine Appearance Clear; Urine Bilirubin Negative (Negative); Urine Blood Negative (Negative); Urine Color Colorless; Urine Glucose Negative (Negative); Urine Ketones Negative (Negative); Urine Nitrite Negative (Negative); Urine Protein Negative (Negative); Urine Specific Gravity 1.005 (1.010-1.030); Urine Urobilinogen Negative (Negative)
[2020-04-15 11:56] LABS: Activated Partial Thrombo Time 41.9 seconds (26.0-38.0); INR 2.07 (0.82-1.09)
[2020-04-15 11:59] LABS: Albumin 4.7 g/dL (3.2-5.2); Albumin/Globulin Ratio 1.8 (1-3); BUN/Creatinine Ratio 19.8 (8-20); Calcium 9.6 mg/dL (8.6-10.3); EGFR African American 50.2 (>60); EGFR Non-African American 41.5 (>60); Globulin 2.6 g/dL (2-4); Magnesium 1.6 mg/dL (1.9-2.7); Potassium 4.6 mmol/L (3.5-5.0); Total Bilirubin 0.8 mg/dL (0.2-1.0); Total Protein 7.3 g/dL (6.4-8.9)
[2020-04-15 12:03] LABS: CKMB ng/mL 1.1 ng/mL (0.6-6.3)
[2020-04-15 12:16] LABS: TSH Ultra Thyroid Stim Horm 4.27 mcIU/mL (0.34-5.60)
[2020-04-15] MEDS ORDERED: Magnesium Sulfate IV 1GM/100ML 1 GM/100 ML BAG IV ONE (12:27)
[2020-04-15 14:13] LABS: C Reactive Protein 91.76 mg/L (<8.01)
[2020-04-15] MEDS ORDERED: Albuterol 2.5mg/3 ml (0.083%) NEB.SOLN INH PRN (15:25)
[2020-04-15 15:37] LABS: Erythrocyte Sed Rate 34 mm/Hr (0-29)
[2020-04-16 05:52] LABS: ABS Eosinophils 0.2 10^3/ul (0-0.6); ABS Lymphocytes 0.8 10^3/ul (1.0-4.8); ABS Monocytes 0.8 10^3/ul (0-0.8); ABS Neutrophils 5.7 10^3/ul (1.5-7.7); Eosinophil % 2.7 %; Hematocrit 34 % (35-47); Hemoglobin 11.6 g/dL (12.0-16.0); Lymphocyte % 10.7 %; Mean Corpuscular HGB Conc 34 g/dL (31-36); Mean Corpuscular Hemoglobin 35 pg (27-31); Mean Corpuscular Volume 102 fL (80-97); Mean Platelet Volume 10.2 fL (7.4-10.4); Platelet Count 154 10^3/uL (150-450); Red Blood Count 3.34 10^6 /uL (3.70-4.87); Red Cell Distribution Width 15 % (10-15); White Blood Count 7.5 10^3/uL (3.5-10.8)
[2020-04-16 06:12] LABS: BUN/Creatinine Ratio 20.4 (8-20); Calcium 9.4 mg/dL (8.6-10.3); EGFR Non-African American 47.1 (>60); HDL Cholesterol 69.6 mg/dL; Magnesium 2.2 mg/dL (1.9-2.7); Potassium 4.8 mmol/L (3.5-5.0)
[2020-04-16 07:54] VITALS: BP 104/63
[2020-04-16] MEDS ORDERED: Calcium/Vitamin D TAB 250/125 TAB PO SCH (09:00)
[2020-04-16] MEDS ORDERED: Tiotropium Brom/Olodaterol MDI INH SCH (09:00)
== END 2020-04-16 09:55 | disposition home or self-care (01) ==
LOC: MEDTELE 10:14 → ED 10:14
PROVIDERS: ADMIT Internal Medicine; ATTEND Internal Medicine